=== PATIENT | female | born 1985 | race Caucasian/White ===

== ENCOUNTER 2016-06-02 19:13 | Emergency (ER) | payer MEDICARE ==
[2016-06-02] MEDS ORDERED: Insulin Regular 300 UNITS/3 ML VIAL ONE (19:58)
[2016-06-02 20:00] LABS: Base Excess -7.2 mEq/L (-2 - +2)
[2016-06-02 20:08] LABS: ALT (SGPT) 11 U/L (0-55); AST (SGOT) 11 U/L (5-34); Alkaline Phosphatase 160 U/L (40-150); Anion Gap 25 mmol/L (10-20); BUN (Urea Nitrogen) 22 mg/dL (7.0-18.7); Bilirubin, Total 0.8 mg/dL (0.2-1.2); Calc. Creatinine Clearance 0 mL/min (70-130); Calcium 9.3 mg/dL (7.8-10.44); Carbon Dioxide 16 mmol/L (22-29); Chloride 89 mmol/L (98-107); Estimated GFR-MDRD 42; Globulin 4.2 g/dL (2.4-3.5); Lipase 813 U/L (8-78); Protein, Total 8.1 g/dL (6.0-8.3)
[2016-06-02 20:12] LABS: Bilirubin Negative (Negative); Blood, Urine Trace (Negative); Glucose, Urine (Dipstick) 500 mg/dL (Negative); Ketone, Urine > or equal to 80 mg/dL (Negative); Nitrite Negative (Negative); Protein, Urine (Dipstick) Negative (Neg-Trace); Urobilinogen 0.2 mg/dL (0.2-1.0)
[2016-06-02 20:22] LABS: #Basophils 0.1 thou/uL (0.0-0.2); #Eosinphils 0.9 thou/uL (0.0-0.7); #Lymphocytes 1.1 thou/uL (1.20-3.40); #Monocytes 0.6 thou/uL (0.11-0.59); #Neutrophils 7.9 thou/uL (1.40-6.50); %Basophils 0.9 % (0.0-1.0); %Eosinophils 8.2 % (0.0-10.0); Hematocrit 54.3 % (36.0-47.0); Mean Platelet Volume 8.5 fL (7.4-10.4); Microcytosis SLIGHT = 6-15 cells (100X) (0-5/hpf); Red Blood Cell (RBC) Count 6.49 mill/uL (4.20-5.40); White Blood Cell (WBC) Count 10.5 thou/uL (4.8-10.8)
[2016-06-02 20:25] LABS: Bacteria/HPF Rare-Few HPF (None Seen); Hyaline Casts/LPF NONE SEEN LPF (0-3 Hyaline); Oval Fat Bodies/HPF None Seen HPF (None Seen); RBC/HPF 0-3 HPF (0-3); Renal Epithelial None Seen HPF (0-3); Sperm/HPF None Seen HPF (None Seen); Squamous Epithelial None Seen HPF (0-3); Transitional Epithelial NONE SEEN HPF (0-3); Trichomonas/HPF None Seen HPF (None Seen); Yeast-All Forms None Seen HPF (None Seen)
--- NOTE | 2016-06-02 22:38 | ERRECORD ---
[facility] EMERGENCY RECORD HPI DIABETES (19:38 [facility]) CHIEF COMPLAINT: Patient presents for evaluation of hyperglycemia, Pre-hospital or triage blood sugar greater than 400. HISTORIAN: History provided by patient, 30F with significant medical history presents with complaints of elevated blood sugar that she noted for the first time today. 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 She reports that over the past few days she has felt generalized malaise, polydipsia, polyuria, and weakness. Denies focal complaints. Measured blood sugar of 569 prior to arrival today. Renal transplant was secondary to diabetic nephropathy. LOCATION: Symptoms are generalized. TIME COURSE: Gradual onset of symptoms, Symptoms are worsening. ASSOCIATED WITH: Associated with polydipsia, Associated with polyuria, Associated with weakness. EXACERBATED BY: Patient's condition exacerbated by nothing. RELIEVED BY: Patient's condition relieved by nothing because patient has not tried anything for relief. ROS (19:40 [facility]) CONSTITUTIONAL: Historian denies chills, reports fatigue, denies fever, reports lethargy, reports malaise, denies weakness. EYES: Negative eye review of systems, Historian denies eye pain, denies vision changes. ENT: Negative ears, nose, throat review of systems, Historian denies rhinorrhea, denies sore throat, denies voice changes. CARDIOVASCULAR: Negative cardiovascular review of systems, Historian denies chest pain, denies palpitations. RESPIRATORY: Negative respiratory review of systems, Historian denies cough, denies shortness of breath. GI: Negative gastrointestinal review of systems, Historian denies abdominal pain, denies constipation, denies diarrhea, denies nausea, denies vomiting. GENITOURINARY FEMALE: Negative genitourinary review of systems, Historian denies dysuria, denies frequency. MUSCULOSKELETAL: Negative musculoskeletal review of systems, Historian denies back pain, denies fall, denies injury. SKIN: Negative skin review of systems, Historian denies rash, denies skin changes. NEUROLOGIC: Negative neurologic review of systems, Historian denies headache, denies mental status changes, denies paralysis, denies paresthesias, denies sensory changes. HEMO/LYMPHATIC: Normal hematologic/lymphatic system review, Historian denies abnormal blood clotting. ALLERGIC/IMMUNOLOGIC: Normal allergy/immunologic system review, Historian denies frequent infections. &a-1R&a+25V*p+0X*[id number]*c202B*c15G*c2P*p-0X&a-25V&a+1R Name: Lillie Aviles : 1985 F30 MedRec: [id number] AcctNum: [id number] Prepared: FriJun 03, 2016 07:48 by Interface Page 1 of 4 pMD [facility] EMERGENCY RECORD PAST MEDICAL HISTORY (19:20 [facility]) MEDICAL HISTORY: PMH - Diabetes, type 1, Past medical history includes cardiac history, CVA 2010, Past medical history includes gastrointestinal disease, gastroesophageal reflux disease,.Notes: Immunosuppressed. Past medical history is not significant. PMH - Diabetes, type 1, Past medical history includes cardiac history, CVA 2010, Past medical history includes gastrointestinal disease, gastroesophageal reflux disease,.Notes: Immunosuppressed. Past medical history is not significant. Reviewed 03/06/2016. REVIEWED 06/02/16. FEMALE SURGICAL HISTORY: Surgical history of tonsillectomy, Surgical history of transplant, kidney, pancreas, Date of surgery September 30, 2012,peritoneal dialysis catheter with removal. Surgical history of tonsillectomy, Surgical history of transplant, kidney, pancreas, Date of surgery September 30, 2012,peritoneal dialysis catheter with removal. Reviewed 03/06/2016. REVIEWED 06/02/16. PSYCHIATRIC HISTORY: Psychiatric history includes, depression, Previous psychiatric history: as a child, REPORTS NOW YEARLY. Psychiatric history includes, depression, Previous psychiatric history: as a child, REPORTS NOW YEARLY. Reviewed 03/06/2016. REVIEWED 06/02/16. SOCIAL HISTORY: Patient drinks socially, Patient denies drug use, Patient currently uses tobacco, smokes cigarettes, daily, Patient has smoked for 20 years, Patient smokes 1/2 packs per day. Patient drinks socially, Patient denies drug use, Patient currently uses tobacco, smokes cigarettes, daily, Patient has smoked for 20 years, Patient smokes 1/2 packs per day. Reviewed . REVIEWED 06/02/16. FAMILY HISTORY: Paternal history of cardiac disease:, coronary artery disease, Paternal history of diabetes:, Type II, Paternal history of hypertension:, Paternal history of renal disease:, insufficiency, Maternal history of renal disease, insufficiency. Reviewed 07/09/2015. Paternal history of cardiac disease:, coronary artery disease, Paternal history of diabetes:, Type II, Paternal history of hypertension:, Paternal history of renal disease:, insufficiency, Maternal history of renal disease, insufficiency. Reviewed 07/09/2015. REVIEWED 06/02/16. KNOWN ALLERGIES MORPHINE: Reaction: Hives Sulfa (Sulfonamide Antibiotics): Reaction: Rash, Severity: Moderate, Source: Patient, - blisters in mouth CURRENT MEDICATIONS No recorded medications VITAL SIGNS VITAL SIGNS: BP: 171/108, Pulse: 118, Resp: 20, Temp: 97.5 (Oral), Pain: 0, O2 sat: 100 on Room Air, Time: 06/02/2016 19:16. (19:16 [facility]) &a-1R&a+25V*p+0X*[id number]*c202B*c15G*c2P*p-0X&a-25V&a+1R Name: Lillie Aviles : 1985 F30 MedRec: [id number] AcctNum: [id number] Prepared: FriJun 03, 2016 07:48 by Interface Page 2 of 4 pMD [facility] EMERGENCY RECORD BP: 172/78, Pulse: 93, Resp: 20, O2 sat: 99 on R/A, Time: 06/02/2016 20:02. (20:02 [facility]) BP: 160/89, Pulse: 80, Resp: 20, Pain: 0, O2 sat: 99 on R/A, Time: 06/02/2016 21:59. (21:59 [facility]) PHYSICAL EXAM (19:40 [facility]) CONSTITUTIONAL: Patient afebrile, Pulse, tachycardic, Blood pressure, hypertensive, Respiratory rate normal, Patient appears non toxic, Patient appears pain free, Patient alert and oriented to person, place and time. HEAD: Head exam normal, Head exam included findings of head atraumatic, normocephalic. EYES: Eye exam normal, Eye exam included findings of eyelids normal to inspection, Pupils equally round and reactive to light, Extraocular muscles intact, no nystagmus. ENT: ENT exam normal, Ear exam normal, external ear normal, tympanic membranes normal, no bleeding, Pharynx exam normal, Uvula exam normal, Tonsil exam normal, Mouth exam normal, mucous membranes moist, teeth normal. NECK: Neck exam normal, Neck exam included findings of normal range of motion, Trachea midline, no meningeal signs, no cervical adenopathy, no tenderness. RESPIRATORY CHEST: Respiratory and chest exam normal, Respiratory exam included findings of no respiratory distress, Breath sounds clear. CARDIOVASCULAR: Cardiovascular assessment normal, Cardiovascular exam included findings of heart rate regular rate and rhythm, Heart sounds normal. ABDOMEN FEMALE: Abdominal exam included findings of abdomen nontender, Bowel sounds normal, no distension, no mass, no pulsatile masses, no peritoneal signs, no rigidity, no guarding, no rebound, Rovsing's sign absent. BACK: Back exam normal, Back exam included findings of normal inspection, range of motion normal, no tenderness. UPPER EXTREMITY: Upper extremity exam normal, Upper extremity exam included findings of inspection normal, Range of motion normal, Motor strength normal, Sensation intact, Radial pulse normal. LOWER EXTREMITY: Lower extremity exam normal, Lower extremity exam included findings of inspection normal, Range of motion normal, Motor strength normal, Sensation intact, Posterior tibial pulse normal, Pedal pulse normal. NEURO: Neuro exam normal, Neuro exam findings include patient oriented to person, place and time, Speech normal, Gait normal, Cranial nerves intact, no focal motor deficits, no focal sensory deficits. SKIN: Skin exam normal, Skin exam included findings of skin warm, dry, and normal in color, no rash. PSYCHIATRIC: Psychiatric exam normal, Normal affect. &a-1R&a+25V*p+0X*[id number]*c202B*c15G*c2P*p-0X&a-25V&a+1R Name: Lillie Aviles Chacho : 1985 F30 MedRec: [id number] AcctNum: [id number] Prepared: FriJun 03, 2016 07:48 by Interface Page 3 of 4 pMD [facility] EMERGENCY RECORD MEDICATION ADMINISTRATION SUMMARY Drug Name: potassium chloride in 0.9%NaCl, Dose Ordered: 1 L, Route: IV Fluid Infusion, Status: Given, Time: 21:00 06/02/2016, Drug Name: NovoLIN R, Dose Ordered: 5.5 units/hr, Route: IV Fluid Infusion, Status: Given, Time: 20:24 06/02/2016, Drug Name: HumuLIN R, Dose Ordered: 6 units, Route: IV Push, Status: Given, Time: 20:05 06/02/2016, Drug Name: *sodium chloride 0.9 % intravenous, Dose Ordered: 1 L, Route: IV Fluid Infusion, Status: Given, Time: 19:59 06/02/2016, *Additional information available in notes, Detailed record available in Medication Service section. [facility] TEXT: Patient presented with findings concerning for DKA with pancreatitis. In view of her underlying medical conditions, I am concerned for transplant failure as well. I have initiated DKA management, and will transfer the patient to [facility] in [place] where her renal transplant specialist provides care. She is stable for transplant. PATIENT STATUS: Patient has improved since arrival to emergency department. PATIENT PLAN: The patient requires a transfer and will be transferred, per physician request, due to availability of specialty care, Transfer form completed. DATA REVIEWED: Lab data reviewed. PROBLEM LIST No recorded problems DIAGNOSIS (22:30 [facility]) FINAL: PRIMARY: Diabetic Ketoacidosis - IDDM, Type 1 (DKA). PRESCRIPTION No recorded prescriptions DISPOSITION PATIENT: Disposition Type: Transfer, Disposition: [facility]. (22:01 [facility]) Patient left the department. (22:29 [facility]) Smith: SHERRI=MD Ella, Elan MV[facility]=JACINTO Huerta, Lynne &a-1R&a+25V*p+0X*[id number]*c202B*c15G*c2P*p-0X&a-25V&a+1R Name: AvilesLillie : 1985 F30 MedRec: [id number] AcctNum: [id number] Prepared: FriJun 03, 2016 07:48 by Interface Page 4 of 4 pMD MTDD
--- NOTE | 2016-06-02 22:44 | PICIS ---
[facility] EMERGENCY RECORD TRIAGE ([place] Jun 02, 2016 19:18 MVIL) TRIAGE NOTES: C/O HIGH FS OF 569 AT HOME 6:30PM. ([place] Jun 02, 2016 19:18 MVIL) PATIENT: NAME: Lillie Aviles, AGE: 30, GENDER: female, : [place] 1985, TIME OF GREET: [place] Jun 02, 2016 19:14, PREFERRED LANGUAGE: Latvian, ETHNICITY: Not or , ECODE BILLING MAP: [facility], SSN: [id number], Zip Code: [address], KG WEIGHT: 56.70, HEIGHT/LENGTH: 152.40cm, BMI: 24.41, PHONE: , , , PERSON ID: [id number], PAYMENT: [employer], PCP: DO POLK JOHN SCOTT. ([place] Jun 02, 2016 19:18 MVIL) COMPLAINT: HIGH BLOOD SUGAR. ([place] Jun 02, 2016 19:18 MVIL) ADMISSION: URGENCY: 3 Urgent, ADMISSION SOURCE: Home, TRANSPORT: CAR, BED: ER -02. ([place] Jun 02, 2016 19:18 MVIL) ASSESSMENT: Assessment: C/O HIGH FS AT HOME OF 569., Symptoms began 06/02/2016 19:20, Symptoms began 30 min ago. (19:20 MVIL) PAIN: No complaint of pain. (19:20 MVIL) IMMUNIZATIONS: Flu vaccine up to date, Tetanus immunization up to date, Pneumococcal vaccine up to date. (19:20 MVIL) SIRS SCORING: Heart Rate 110-139 (2), Temp range 96.8-101.1 (0), respiratory rate 12-24 (0), Mental Status altered: no (0), Total SIRS Score 2. (19:20 MVIL) TRIAGE SCREENING: Patient denies suicidal ideation, Patient denies presence of domestic violence. (19:20 MVIL) TREATMENTS IN PROGRESS: Patient on quality assurance monitor, Rhythm: SINUS TACH. (19:20 MVIL) PROVIDERS: TRIAGE NURSE: Lynne Huerta RN. ([place] Jun 02, 2016 19:18 MVIL) VITAL SIGNS: BP 171/108, Pulse 118, Resp 20, Temp 97.5, (Oral), Pain 0, O2 Sat 100, on Room Air, Time 06/02/2016 19:16. (19:16 MVIL) PREVIOUS VISIT ALLERGIES: Sulfa (Sulfonamide Antibiotics). ([place] Jun 02, 2016 19:18 MVIL) Sulfa (Sulfonamide Antibiotics). (19:20 MVIL) KNOWN ALLERGIES MORPHINE: Reaction: Hives Sulfa (Sulfonamide Antibiotics): Reaction: Rash, Severity: Moderate, Source: Patient, - blisters in mouth CURRENT MEDICATIONS No recorded medications VITAL SIGNS VITAL SIGNS: BP: 171/108, Pulse: 118, Resp: 20, Temp: 97.5 (Oral), Pain: 0, O2 sat: 100 on Room Air, Time: 06/02/2016 19:16. (19:16 MVIL) BP: 172/78, Pulse: 93, Resp: 20, O2 sat: 99 on R/A, Time: 06/02/2016 20:02. (20:02 MVIL) BP: 160/89, Pulse: 80, Resp: 20, Pain: 0, O2 sat: 99 on R/A, Time: 06/02/2016 21:59. (21:59 MVIL) &a-1R&a+25V*p+0X*q0846Q*c202B*c15G*c2P*p-0X&a-25V&a+1R Name: Lillie Aviles : 1985 F30 MedRec: [id number] AcctNum: [id number] Prepared: FriJun 03, 2016 07:54 by Interface Page 1 of 12 pMD [facility] EMERGENCY RECORD NURSING ASSESSMENT: CARDIOVASCULAR (19:22 MVIL) CONSTITUTIONAL: Patient arrives ambulatory, Gait steady, History obtained from patient, Patient appears comfortable, Patient cooperative, Patient alert, Oriented to person, place and time, Skin warm, Skin dry, Skin normal in color, Mucous membranes pink, Mucous membranes moist, Patient is well-groomed, Patient complains of HIGH BLOOD SUGAR, FS AT HOME WAS 569 AT 6:30PM. PAIN: No sudden onset of pain. CARDIOVASCULAR: Cardiovascular assessment findings include heart rate, tachycardic, Rate 110, Heart rhythm, sinus tachycardia, Heart sounds normal, Left radial pulse +4(strong and bounding), Right radial pulse +4(strong and bounding), Left dorsalis pedis pulse +4(strong and bounding), Right dorsalis pedis pulse +4(strong and bounding), Associated with palpitations described as, Associated with weakness. RESPIRATORY/CHEST: Breath sounds clear, Respiratory assessment findings include respiratory effort easy, Respirations regular, Conversing normally, Neck and chest exam findings include trachea midline, Chest expansion equal, Chest movement symmetrical. SAFETY: Side rails up, Cart/Stretcher in lowest position, Call light within reach, Hospital ID band on. NURSING PROCEDURE: COMMUNICATIONS (20:18 EMAT) COMMUNICATIONS: Critical lab value, received at 2018, received from Mary, Power Station Operator, Critical lab result: BSG- [id number], given to MD Ella, results read back and verified. NURSING PROCEDURE: IV (20:02 MVIL) PATIENT IDENITIFIER: Patient actively involved in identification process, Patient's identity verified by patient stating name, Patient's identity verified by hospital ID bracelet. IV SITE 1: IV therapy indicated for hydration, IV therapy indicated for medication administration, IV established, to the left forearm, using a 20 gauge catheter, in two attempts, IV site prepped with CHLOROPREP, Saline lock established, Flushed with normal saline (mls): 10MLS, Labs drawn at time of placement, labeled in the presence of the patient and sent to lab. FOLLOW-UP SITE 1: After procedure, 2x3 ensure dressing applied, After procedure, no drainage at IV site, After procedure, no swelling at IV site, After procedure, no redness at IV site. SAFETY: Side rails up, Cart/Stretcher in lowest position, Family at bedside, Call light within reach, Hospital ID band on. VITAL SIGNS: BP: 172, / 78, Pulse: 93, Resp: 20, O2 sat: 99, on: R/A. NURSING PROCEDURE: NURSE NOTES (21:15 MVIL) NURSES NOTES: Notes: FS 519 AT THIS TIME. REMAINS ON INSULIN DRIP AT 5.5ML/HR. DR. WILSON AWARE. &a-1R&a+25V*p+0X*f5885A*c202B*c15G*c2P*p-0X&a-25V&a+1R Name: Lillie Aviles : 1985 F30 MedRec: [id number] AcctNum: [id number] Prepared: FriJun 03, 2016 07:54 by Interface Page 2 of 12 D [facility] EMERGENCY RECORD NURSING PROCEDURE: TRANSFER (21:59 MVIL) TRANSFER: Reason for transfer patient request, Reason for transfer need for specialized care, Diagnosis: DKA, Accepting institution: [facility], Accepting physician: DR. VONDA YOON, Referring physician: DR. WILSON, Transported by urgent ambulance, accompanied by emergency medical services personnel, Report called to receiving facility, [facility], Provided opportunity to answer questions, Bed assigned [id number], Copy of patient record prepared for receiving facility, Status of patient's valuables documented on chart, Medication reconciliation form prepared and sent to receiving facility, Notes: REPORT GIVEN TO JAZZ CASEY AT [facility]. BELONGINGS: Belongings and valuables with patient at time of discharge include:. VITAL SIGNS: BP: 160, / 89, Pulse: 80, Resp: 20, Pain: 0, O2 sat: 99, on: R/A. ORDER DETAILS Order Name: CBC with Differential, Status: Active, Time: 19:25 06/02/2016, User: URBANO, - Ordered for: MD Wilson Jason, - Entered by: MD Wilson Jason - Sun Jun 02, 2016 19:25, - Quantity: 1, Order Name: Comprehensive Metabolic Panel, Status: Active, Time: 19:25 06/02/2016, User: URBANO, - Ordered for: MD Wilson Jason, - Entered by: MD Wilson Jason - Sun Jun 02, 2016 19:25, - Quantity: 1, Order Name: Lipase, Status: Active, Time: 19:25 06/02/2016, User: URBANO, - Ordered for: MD Wilson Jason, - Entered by: MD Wilson Jason - Sun Jun 02, 2016 19:25, - Quantity: 1, Order Name: SALINE LOCK, Status: Done, Time: 19:52 06/02/2016, User: CHENG, - Ordered for: MD Wilson Jason, - Entered by: MD Wilson Jason - Sun Jun 02, 2016 19:25, - Quantity: 1, Order Name: Thyroid Stimulating Hormone, Status: Active, Time: 19:25 06/02/2016, User: URBANO, - Ordered for: MD Wils[place] Jason, - Entered by: MD Wilson Jason - Sun Jun 02, 2016 19:25, - Quantity: 1, Order Name: Urinalysis w/ Rflx Microscopic, Status: Active, Time: 19:49 06/02/2016, User: URBANO, - Ordered for: MD Wilson Jason, - Entered by: MD Wilson Jason - Sun Jun 02, 2016 19:49, - Quantity: 1, &a-1R&a+25V*p+0X*x7780Q*c202B*c15G*c2P*p-0X&a-25V&a+1R Name: Lillie Aviles : 1985 F30 MedRec: [id number] AcctNum: [id number] Prepared: FriJun 03, 2016 07:54 by Interface Page 3 of 12 pMD [facility] EMERGENCY RECORD Order Name: VBG (For BUR,MAD, and PATIENCE), Status: Active, Time: 19:25 06/02/2016, User: URBANO, - Ordered for: MD Wilson Jason, - Entered by: MD Wilson Jason - Sun Jun 02, 2016 19:25, - Quantity: 1. MEDICATION ADMINISTRATION SUMMARY Drug Name: potassium chloride in 0.9%NaCl, Dose Ordered: 1 L, Route: IV Fluid Infusion, Status: Given, Time: 21:00 06/02/2016, Drug Name: NovoLIN R, Dose Ordered: 5.5 units/hr, Route: IV Fluid Infusion, Status: Given, Time: 20:24 06/02/2016, Drug Name: HumuLIN R, Dose Ordered: 6 units, Route: IV Push, Status: Given, Time: 20:05 06/02/2016, Drug Name: *sodium chloride 0.9 % intravenous, Dose Ordered: 1 L, Route: IV Fluid Infusion, Status: Given, Time: 19:59 06/02/2016, *Additional information available in notes, Detailed record available in Medication Service section. MEDICATION SERVICE HumuLIN R: Order: HumuLIN R (insulin regular, human) - Dose: 6 units : IV Push Ordered by: Elan Wilson MD Entered by: Elan Wilson MD [place] Jun 02, 2016 19:27 Documented as given by: Lynne Huerta RN [place] Jun 02, 2016 20:05 Patient, Medication, Dose, Route and Time verified prior to administration. Amount given: 6UNITS, IV SITE #1 IVP, initial medication, Catheter placement confirmed via flush prior to administration, IV site without signs or symptoms of infiltration during medication administration, No swelling during administration, No drainage during administration, IV flushed after administration, Correct patient, time, route, dose and medication confirmed prior to administration, Patient advised of actions and side-effects prior to administration, Allergies confirmed and medications reviewed prior to administration, Patient in position of comfort, Side rails up, Cart in lowest position, Family at bedside, Co-signed by: Braulio Millan RN [place] Jun 02, 2016 20:06. NovoLIN R: Order: NovoLIN R (insulin regular, human) - Dose: 5.5 units/hr : IV Fluid Infusion Ordered by: Elan Wilson MD Entered by: Elan Wilson MD [place] Jun 02, 2016 20:11 Documented as given by: Lynne Huerta RN [place] Jun 02, 2016 20:24 Patient, Medication, Dose, Route and Time verified prior to administration. Amount given: 5.5ML/HR, IV SITE #1 IVPB or drip, initial infusion, Catheter placement confirmed via flush prior to administration, IV site without signs or symptoms of infiltration during medication &a-1R&a+25V*p+0X*y9197A*c202B*c15G*c2P*p-0X&a-25V&a+1R Name: Lillie Aviles : 1985 F30 MedRec: [id number] AcctNum: [id number] Prepared: FriJun 03, 2016 07:54 by Interface Page 4 of 12 pMD [facility] EMERGENCY RECORD administration, No swelling during administration, No drainage during administration, IV flushed after administration, Correct patient, time, route, dose and medication confirmed prior to administration, Patient advised of actions and side-effects prior to administration, Allergies confirmed and medications reviewed prior to administration, Patient in position of comfort, Side rails up, Cart in lowest position, Family at bedside. : Follow Up : Response assessment performed, No signs or symptoms of allergic reaction noted, Decreased symptoms, Site inspection shows, No swelling at administration site, No drainage at administration site, No bleeding at site, No bruising noted at site, Dressing applied, _IV SITE #1:_, Medication infusion continued upon transfer from emergency department, on [place] Jun 02, 2016 22:06, Total infusion time IV site 1 1 hour, 45 minutes, . (22:04 MVIL) potassium chloride in 0.9%NaCl: Order: potassium chloride in 0.9%NaCl (potassium chloride/0.9 % sodium chloride) - Dose: 1 L : IV Fluid Infusion Ordered by: Elan Wilson MD Entered by: Elan Wilson MD [place] Jun 02, 2016 20:44 Documented as given by: Lynne Huerta RN [place] Jun 02, 2016 21:00 Patient, Medication, Dose, Route and Time verified prior to administration. Amount given: 500ML/HR, Catheter placement confirmed via flush prior to administration, IV site without signs or symptoms of infiltration during medication administration, No swelling during administration, No drainage during administration, IV flushed after administration, Correct patient, time, route, dose and medication confirmed prior to administration, Patient advised of actions and side-effects prior to administration, Allergies confirmed and medications reviewed prior to administration, Patient in position of comfort, Side rails up, Cart in lowest position, Family at bedside. : Follow Up : Response assessment performed, No signs or symptoms of allergic reaction noted, Decreased symptoms, Site inspection shows, No swelling at administration site, No drainage at administration site, No bleeding at site, No bruising noted at site, _IV SITE #1:_, Medication infusion continued upon transfer from emergency department, on [place] Jun 02, 2016 22:00, Total infusion time IV site 1 1 hour, ., Advised not to ambulate without assistance, Patient in position of comfort, Side rails up, Cart in lowest position, Family at bedside. (22:00 MVIL) sodium chloride 0.9 % intravenous: Order: sodium chloride 0.9 % intravenous (0.9 % sodium chloride) - Dose: 1 L : IV Fluid Infusion Notes: (Bolus) Ordered by: Elan Wilson MD Entered by: Elan Wilson MD [place] Jun 02, 2016 19:25 Documented as given by: Lynne Huerta RN [place] Jun 02, 2016 19:59 &a-1R&a+25V*p+0X*r6605Y*c202B*c15G*c2P*p-0X&a-25V&a+1R Name: Lillie Aviles : 1985 F30 MedRec: [id number] AcctNum: [id number] Prepared: FriJun 03, 2016 07:54 by Interface Page 5 of 12 pMD [facility] EMERGENCY RECORD Patient, Medication, Dose, Route and Time verified prior to administration. Amount given: 1L, IV SITE #1 IV fluids established for hydration, IV SITE #1 into left forearm, via primary tubing, Catheter placement confirmed via flush prior to administration, IV site without signs or symptoms of infiltration during medication administration, No swelling during administration, No drainage during administration, IV flushed after administration, Correct patient, time, route, dose and medication confirmed prior to administration, Patient advised of actions and side-effects prior to administration, Allergies confirmed and medications reviewed prior to administration, Patient in position of comfort, Side rails up, Cart in lowest position, Family at bedside. : Follow Up : Response assessment performed, No signs or symptoms of allergic reaction noted, Decreased symptoms, Decreased heart rate, Site inspection shows, No swelling at administration site, No drainage at administration site, No bleeding at site, No bruising noted at site, _IV SITE #1:_, IV fluid infusion discontinued, on [place] Jun 02, 2016 22:00, Total fluid hydration time IV site 1 2 hours, 5 minutes, ., Total amount infused: 1000MLS, IV Line flushed after administration, Advised not to ambulate without assistance, Patient in position of comfort, Side rails up, Cart in lowest position, Family at bedside. (22:00 [place]) HPI DIABETES (19:38 [facility]) CHIEF COMPLAINT: Patient presents for evaluation of hyperglycemia, Pre-hospital or triage blood sugar greater than 400. HISTORIAN: History provided by patient, 30F with significant medical history presents with complaints of elevated blood sugar that she noted for the first time today. 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 She reports that over the past few days she has felt generalized malaise, polydipsia, polyuria, and weakness. Denies focal complaints. Measured blood sugar of 569 prior to arrival today. Renal transplant was secondary to diabetic nephropathy. LOCATION: Symptoms are generalized. TIME COURSE: Gradual onset of symptoms, Symptoms are worsening. ASSOCIATED WITH: Associated with polydipsia, Associated with polyuria, Associated with weakness. EXACERBATED BY: Patient's condition exacerbated by nothing. RELIEVED BY: Patient's condition relieved by nothing because patient has not tried anything for relief. ROS (19:40 [facility]) CONSTITUTIONAL: Historian denies chills, reports fatigue, denies fever, reports lethargy, reports malaise, denies weakness. EYES: Negative eye review of systems, Historian denies eye pain, &a-1R&a+25V*p+0X*u1728B*c202B*c15G*c2P*p-0X&a-25V&a+1R Name: Lillie Aviles : 1985 F30 MedRec: [id number] AcctNum: [id number] Prepared: FriJun 03, 2016 07:54 by Interface Page 6 of 12 pMD [facility] EMERGENCY RECORD denies vision changes. ENT: Negative ears, nose, throat review of systems, Historian denies rhinorrhea, denies sore throat, denies voice changes. CARDIOVASCULAR: Negative cardiovascular review of systems, Historian denies chest pain, denies palpitations. RESPIRATORY: Negative respiratory review of systems, Historian denies cough, denies shortness of breath. GI: Negative gastrointestinal review of systems, Historian denies abdominal pain, denies constipation, denies diarrhea, denies nausea, denies vomiting. GENITOURINARY FEMALE: Negative genitourinary review of systems, Historian denies dysuria, denies frequency. MUSCULOSKELETAL: Negative musculoskeletal review of systems, Historian denies back pain, denies fall, denies injury. SKIN: Negative skin review of systems, Historian denies rash, denies skin changes. NEUROLOGIC: Negative neurologic review of systems, Historian denies headache, denies mental status changes, denies paralysis, denies paresthesias, denies sensory changes. HEMO/LYMPHATIC: Normal hematologic/lymphatic system review, Historian denies abnormal blood clotting. ALLERGIC/IMMUNOLOGIC: Normal allergy/immunologic system review, Historian denies frequent infections. PAST MEDICAL HISTORY (19:20 MVIL) MEDICAL HISTORY: PMH - Diabetes, type 1, Past medical history includes cardiac history, CVA 2010, Past medical history includes gastrointestinal disease, gastroesophageal reflux disease,.Notes: Immunosuppressed. Past medical history is not significant. PMH - Diabetes, type 1, Past medical history includes cardiac history, CVA 2010, Past medical history includes gastrointestinal disease, gastroesophageal reflux disease,.Notes: Immunosuppressed. Past medical history is not significant. Reviewed 03/06/2016. REVIEWED 06/02/16. FEMALE SURGICAL HISTORY: Surgical history of tonsillectomy, Surgical history of transplant, kidney, pancreas, Date of surgery September 30, 2012,peritoneal dialysis catheter with removal. Surgical history of tonsillectomy, Surgical history of transplant, kidney, pancreas, Date of surgery September 30, 2012,peritoneal dialysis catheter with removal. Reviewed 03/06/2016. REVIEWED 06/02/16. PSYCHIATRIC HISTORY: Psychiatric history includes, depression, Previous psychiatric history: as a child, REPORTS NOW YEARLY. Psychiatric history includes, depression, Previous psychiatric history: as a child, REPORTS NOW YEARLY. Reviewed 03/06/2016. REVIEWED 06/02/16. SOCIAL HISTORY: Patient drinks socially, Patient denies drug use, Patient currently uses tobacco, smokes cigarettes, daily, Patient has smoked for 20 years, Patient smokes 1/2 packs per day. Patient drinks socially, Patient denies drug use, Patient currently uses tobacco, smokes cigarettes, daily, Patient has smoked for 20 &a-1R&a+25V*p+0X*p1566W*c202B*c15G*c2P*p-0X&a-25V&a+1R Name: Lillie Aviles : 1985 F30 MedRec: [id number] AcctNum: [id number] Prepared: FriJun 03, 2016 07:54 by Interface Page 7 of 12 pMD [facility] EMERGENCY RECORD years, Patient smokes 1/2 packs per day. Reviewed . REVIEWED 06/02/16. FAMILY HISTORY: Paternal history of cardiac disease:, coronary artery disease, Paternal history of diabetes:, Type II, Paternal history of hypertension:, Paternal history of renal disease:, insufficiency, Maternal history of renal disease, insufficiency. Reviewed 07/09/2015. Paternal history of cardiac disease:, coronary artery disease, Paternal history of diabetes:, Type II, Paternal history of hypertension:, Paternal history of renal disease:, insufficiency, Maternal history of renal disease, insufficiency. Reviewed 07/09/2015. REVIEWED 06/02/16. PHYSICAL EXAM (19:40 [facility]) CONSTITUTIONAL: Patient afebrile, Pulse, tachycardic, Blood pressure, hypertensive, Respiratory rate normal, Patient appears non toxic, Patient appears pain free, Patient alert and oriented to person, place and time. HEAD: Head exam normal, Head exam included findings of head atraumatic, normocephalic. EYES: Eye exam normal, Eye exam included findings of eyelids normal to inspection, Pupils equally round and reactive to light, Extraocular muscles intact, no nystagmus. ENT: ENT exam normal, Ear exam normal, external ear normal, tympanic membranes normal, no bleeding, Pharynx exam normal, Uvula exam normal, Tonsil exam normal, Mouth exam normal, mucous membranes moist, teeth normal. NECK: Neck exam normal, Neck exam included findings of normal range of motion, Trachea midline, no meningeal signs, no cervical adenopathy, no tenderness. RESPIRATORY CHEST: Respiratory and chest exam normal, Respiratory exam included findings of no respiratory distress, Breath sounds clear. CARDIOVASCULAR: Cardiovascular assessment normal, Cardiovascular exam included findings of heart rate regular rate and rhythm, Heart sounds normal. ABDOMEN FEMALE: Abdominal exam included findings of abdomen nontender, Bowel sounds normal, no distension, no mass, no pulsatile masses, no peritoneal signs, no rigidity, no guarding, no rebound, Rovsing's sign absent. BACK: Back exam normal, Back exam included findings of normal inspection, range of motion normal, no tenderness. UPPER EXTREMITY: Upper extremity exam normal, Upper extremity exam included findings of inspection normal, Range of motion normal, Motor strength normal, Sensation intact, Radial pulse normal. LOWER EXTREMITY: Lower extremity exam normal, Lower extremity exam included findings of inspection normal, Range of motion normal, Motor strength normal, Sensation intact, Posterior tibial pulse normal, Pedal pulse normal. NEURO: Neuro exam normal, Neuro exam findings include patient &a-1R&a+25V*p+0X*q7242F*c202B*c15G*c2P*p-0X&a-25V&a+1R Name: Lillie Aviles : 1985 [facility] MedRec: [id number] AcctNum: [id number] Prepared: FriJun 03, 2016 07:54 by Interface Page 8 of 12 pMD [facility] EMERGENCY RECORD oriented to person, place and time, Speech normal, Gait normal, Cranial nerves intact, no focal motor deficits, no focal sensory deficits. SKIN: Skin exam normal, Skin exam included findings of skin warm, dry, and normal in color, no rash. PSYCHIATRIC: Psychiatric exam normal, Normal affect. LAB INTERPRETATION (20:29 [facility]) INTERPRETATION: I reviewed the lab results, CBC abnormal, Hemoglobin elevated, Chemistry abnormal, Sodium decreased, Potassium normal, Chloride decreased, Glucose elevated, BUN elevated, Creatinine elevated, Bicarbonate decreased, pseudohyponatremia, Lipase abnormal, elevated, Urinalysis abnormal, positive for ketones, positive for glucose, consistent with DKA. EVENTS TRANSFER: Triage to Emergency Emergency Room -02. (FriJun 02, 2016 19:18 MVIL) Removed from Emergency Emergency Room -02. (22:30 MVIL) DOCTOR NOTES (20:31 [facility]) TEXT: Patient presented with findings concerning for DKA with pancreatitis. In view of her underlying medical conditions, I am concerned for transplant failure as well. I have initiated DKA management, and will transfer the patient to [facility] in [place] where her renal transplant specialist provides care. She is stable for transplant. PATIENT STATUS: Patient has improved since arrival to emergency department. PATIENT PLAN: The patient requires a transfer and will be transferred, per physician request, due to availability of specialty care, Transfer form completed. DATA REVIEWED: Lab data reviewed. PROBLEM LIST No recorded problems DIAGNOSIS (22:30 MVIL) FINAL: PRIMARY: Diabetic Ketoacidosis - IDDM, Type 1 (DKA). DISPOSITION PATIENT: Disposition Type: Transfer, Disposition: Jorge. (22:01 [facility]) Patient left the department. (22:29 MVIL) PRESCRIPTION &a-1R&a+25V*p+0X*v1831W*c202B*c15G*c2P*p-0X&a-25V&a+1R Name: Lillie Aviles : 1985 1 MedRec: [id number] AcctNum: [id number] Prepared: FriJun 03, 2016 07:54 by Interface Page 9 of 12 pMD [facility] EMERGENCY RECORD No recorded prescriptions IMAGING CONSENTS: Image captured from scanner. (20:38 MVIL) *SUPPLY CHARGE SHEET: Image captured from scanner. (20:39 MVIL) *MEMORANDUM OF TRANSFER: Image captured from scanner. (21:10 MVIL) PHYSICIAN CERTIFICATION STATEMENT: Image captured from scanner. (21:10 MVIL) ADMIN (FriJun 03, 2016 07:47 [facility]) DIGITAL SIGNATURE: MD Wilson Jason. RESULTS (21:12 MVIL) LABORATORY: Thyroid Stimulating Hormone Collection DT: FriJun 02, 2016 19:48, Thyroid Stimulating Hormone 2.8902 uIU/mL, Range (0.35-4.94). Urine Microscopic Collection DT: FriJun 02, 2016 20:09, RBC/HPF 0-3 HPF, Range (0-3), *WBC/HPF 4-6 - H HPF, Range (0-3), Squamous Epithelial None Seen HPF, Range (0-3), Transitional Epithelial NONE SEEN HPF, Range (0-3), Renal Epithelial None Seen HPF, Range (0-3), Bacteria/HPF Rare-Few HPF, Range (None Seen), Yeast-All Forms None Seen HPF, Range (None Seen), Trichomonas/HPF None Seen HPF, Range (None Seen), Oval Fat Bodies/HPF None Seen HPF, Range (None Seen), Sperm/HPF None Seen HPF, Range (None Seen), Hyaline Casts/LPF NONE SEEN LPF, Range (0-3 Hyaline). Urinalysis w/ Rflx Microscopic Collection DT: [place] Jun 02, 2016 20:09, Color Yellow , Range (Yellow), Clarity Clear , Range (Clear), Specific [place], Urine 1.027 , Range (1.002-1.036), pH, Urine 5.5 , Range (5.0-9.0), *Leukocyte Trace - H , Range (Negative), Nitrite Negative , Range (Negative), Protein, Urine (Dipstick) Negative mg/dL, Range (Neg-Trace), *Glucose, Urine (Dipstick) 500 - H mg/dL, Range (Negative), *Ketone, Urine > or equal to 80 - mg/dL, * H , Range (Negative), Urobilinogen 0.2 mg/dL, Range (0.2-1.0), Bilirubin Negative , Range (Negative), *Blood, Urine Trace - H , Range (Negative). CBC with Differential Collection DT: [place] Jun 02, 2016 19:48, White Blood Cell (WBC) Count 10.5 thou/uL, Range (4.8-10.8), *Red Blood Cell (RBC) Count 6.49 - H mill/uL, Range (4.20-5.40), *Hemoglobin 16.2 - H g/dL, Range (12.0-16.0), *Hematocrit 54.3 - H %, Range (36.0-47.0), &a-1R&a+25V*p+0X*y1197T*c202B*c15G*c2P*p-0X&a-25V&a+1R Name: Lillie Aviles Chacho : 1985 1 MedRec: [id number] AcctNum: [id number] Prepared: FriJun 03, 2016 07:54 by Interface Page 10 of 12 pMD [facility] EMERGENCY RECORD Mean Corpuscular Volume 83.6 fl, Range (81.0-99.0), *Mean Corpuscular Hemoglobin 24.9 - L pg, Range (27.0-31.0), *Mean Corpuscular HGB CONC 29.8 - L g/dL, Range (32.0-36.0), *RBC Distribution Width 17.6 - H %, Range (11.5-14.5), Platelet Count 205 thou/uL, Range (130-400), Mean Platelet Volume 8.5 fL, Range (7.4-10.4), %Neutrophils 74.8 %, Range (42.0-75.0), *%Lymphocytes 10.1 - L %, Range (21.0-51.0), %Monocytes 6.0 %, Range (0.0-10.0), %Eosinophils 8.2 %, Range (0.0-10.0), %Basophils 0.9 %, Range (0.0-1.0), *#Neutrophils 7.9 - H thou/uL, Range (1.40-6.50), *#Lymphocytes 1.1 - L thou/uL, Range (1.20-3.40), *#Monocytes 0.6 - H thou/uL, Range (0.11-0.59), *#Eosinphils 0.9 - H thou/uL, Range (0.0-0.7), #Basophils 0.1 thou/uL, Range (0.0-0.2), Microcytosis SLIGHT = 6-15 cells (100X), Range (0-5/hpf). Lipase Collection DT: [place] Jun 02, 2016 19:48, *Lipase 813 - H U/L, Range (8-78). Comprehensive Metabolic Panel Collection DT: [place] Jun 02, 2016 19:48, Critical Call Chemistry CALLED TO CCU.EM 2017 BY RACHELL , Refer to Critical Value designated by an *L or *H , *Sodium 125 - L mmol/L, Range (136-145), Potassium 4.8 mmol/L, Range (3.5-5.1), *Chloride 89 - L mmol/L, Range (98-107), *Carbon Dioxide 16 - L mmol/L, Range (22-29), *Anion Gap 25 - H mmol/L, Range (10-20), *BUN (Urea Nitrogen) 22 - H mg/dL, Range (7.0-18.7), *Creatinine 1.46 - H mg/dL, Range (0.6-1.1), Estimated GFR-MDRD 42 , Reference Range for Estimated GFR: Greater than 90, mL/min/1.73 m2 NOTE: The MDRD equation has not been validated for use, with the elderly (over 70 years of age), women, patients with, serious comorbid condition or persons with extremes of body size, muscle, mass, or nutritional status. , *Glucose 784 - *H mg/dL, Range (70-105), Critical value!, Calcium 9.3 mg/dL, Range (7.8-10.44), Bilirubin, Total 0.8 mg/dL, Range (0.2-1.2), Protein, Total 8.1 g/dL, Range (6.0-8.3), NOTE: Plasma values are generally 0.3 to 0.5 g/dL higher than serum values, due to the presence of fibrinogen. , Albumin 3.9 g/dL, Range (3.5-5.0), *Globulin 4.2 - H g/dL, Range (2.4-3.5), *Alb/Glob Ratio 0.9 - L g/dL, Range (1.2-2.2), *Alkaline Phosphatase 160 - H U/L, Range (40-150), &a-1R&a+25V*p+0X*q9192K*c202B*c15G*c2P*p-0X&a-25V&a+1R Name: Lillie Aviles : 1985 F30 MedRec: [id number] AcctNum: [id number] Prepared: FriJun 03, 2016 07:54 by Interface Page 11 of 12 pMD [facility] EMERGENCY RECORD AST (SGOT) 11 U/L, Range (5-34), ALT (SGPT) 11 U/L, Range (0-55). Blood Gas-Venous Collection DT: [place] Jun 02, 2016 19:48, *pH (venous) 7.250 - *L , Range (7.34-7.37), Results called to, and verbally verified through read-back by: NIRMALA FELIX @ENTER PERSON CALLED IN THE BRACKETS. by: Reji Liu on 06/02/16 at, 1959. CORRECTED REPORT Result, reported above is a corrected result. Previous result reported as 7.250 *L , was incorrect due to: CORRECTED READ BACK. EDITED Results called to: , Performed by: Reji Liu on 06/02/16 at 2005. , CO2 Tension (PvCO2) 46.0 mmHg, Range (44-46), O2 Tension (PvO2) 41.0 mmHg, Range (38-42), *Actual Bicarbonate (HCO3v) 20 - L mEq/L, Range (24-30), Base Excess -7.2 mEq/L, Range (-2 - +2), O2 Saturation-measured venous 67.0 %, Range (60-80), *Hemoglobin (Hb) 16.2 - H g/dL, Range (11.7-15.5). Smith: ANGELT=JACINTO Millan, Braulio CLEMENT=MD Ella, Elan CWOANIL=JACINTO Huerta, Lynne &a-1R&a+25V*p+0X*e8344T*c202B*c15G*c2P*p-0X&a-25V&a+1R Name: StefanLillie : 1985 F30 MedRec: [id number] AcctNum: [id number] Prepared: FriJun 03, 2016 07:54 by Interface Page 12 of 12 pMD MTDD
== END 2016-06-02 22:29 | disposition short-term general hospital (02) ==
LOC: BURERS 19:13
DX: E10.10 Type 1 diabetes mellitus with ketoacidosis without coma (principal); K21.9 Gastro-esophageal reflux disease without esophagitis; F32.9 Major depressive disorder, single episode, unspecified; F17.210 Nicotine dependence, cigarettes, uncomplicated
CPT/HCPCS: 36416; 80053; 81003; 81015; 82805; 83690; 84443; 85025; 96365; 96366; 96368; 96376; J1815

== ENCOUNTER 2016-06-15 09:34 | Emergency (ER) | payer MEDICARE ==
[2016-06-15] MEDS ORDERED: Fluorescein Opthalmic Strip ONE (09:46)
[2016-06-15] MEDS ORDERED: Tetracaine HCl 0.5% Ophth Soln 15 ML Bottle ONE (09:46)
[2016-06-15] MEDS ORDERED: HYDROcodone/Acetaminophen 5/325 mg Tablet ONE ×2 (10:13→10:32)
== END 2016-06-15 12:05 | disposition home or self-care (01) ==
LOC: BURERS 09:34
DX: B02.33 Zoster keratitis (principal); E10.9 Type 1 diabetes mellitus without complications; K21.9 Gastro-esophageal reflux disease without esophagitis; F41.9 Anxiety disorder, unspecified; F32.9 Major depressive disorder, single episode, unspecified; F17.210 Nicotine dependence, cigarettes, uncomplicated; Z94.0 Kidney transplant status; Z86.73 Personal history of transient ischemic attack (TIA), and cerebral infarction without residual deficits
CPT/HCPCS: 99283

== ENCOUNTER 2016-06-24 20:19 | Emergency (ER) | payer MEDICARE ==
[2016-06-24] MEDS ORDERED: Tetracaine HCl 0.5% Ophth Soln 2 ML Bottle ONE (20:30)
[2016-06-24] MEDS ORDERED: Ondansetron HCl/PF 4 MG/2 ML Vial ONE (20:47)
[2016-06-24] MEDS ORDERED: Morphine Sulfate 2 MG/ML SYRINGE ONE (20:47)
[2016-06-24 21:06] LABS: Mean Platelet Volume 7.7 fL (7.4-10.4); Red Blood Cell (RBC) Count 5.83 mill/uL (4.20-5.40); White Blood Cell (WBC) Count 9.9 thou/uL (4.8-10.8)
[2016-06-24 21:08] LABS: ALT (SGPT) 15 U/L (0-55); AST (SGOT) 12 U/L (5-34); Alkaline Phosphatase 132 U/L (40-150); Anion Gap 17 mmol/L (10-20); BUN (Urea Nitrogen) 8 mg/dL (7.0-18.7); Bilirubin, Total 0.6 mg/dL (0.2-1.2); Calc. Creatinine Clearance 0 mL/min (70-130); Calcium 9.7 mg/dL (7.8-10.44); Carbon Dioxide 23 mmol/L (22-29); Chloride 96 mmol/L (98-107); Estimated GFR-MDRD 85; Globulin 4.2 g/dL (2.4-3.5)
[2016-06-24 21:14] LABS: #Basophils 0.1 thou/uL (0.0-0.2); #Eosinphils 0.9 thou/uL (0.0-0.7); #Lymphocytes 1.4 thou/uL (1.20-3.40); #Monocytes 0.7 thou/uL (0.11-0.59); #Neutrophils 6.9 thou/uL (1.40-6.50); %Basophils 1.2 % (0.0-1.0); %Eosinophils 8.6 % (0.0-10.0); %Monocytes 6.6 % (0.0-10.0); Anisocytosis SLIGHT = 6-15 cells (100X) (0-5/hpf)
== END 2016-06-24 21:40 | disposition short-term general hospital, planned readmission (82) ==
LOC: BURERS 20:19
DX: H40.212 Acute angle-closure glaucoma, left eye (principal); H16.9 Unspecified keratitis; K21.9 Gastro-esophageal reflux disease without esophagitis; E10.9 Type 1 diabetes mellitus without complications; F32.9 Major depressive disorder, single episode, unspecified; F41.9 Anxiety disorder, unspecified; F17.210 Nicotine dependence, cigarettes, uncomplicated; Z86.73 Personal history of transient ischemic attack (TIA), and cerebral infarction without residual deficits
CPT/HCPCS: 36416; 80053; 84703; 85025; 96361; 96374; 96375; J2270; J2405

== ENCOUNTER 2016-12-12 16:05 | Emergency (ER) | payer MEDICARE ==
[2016-12-12] MEDS ORDERED: Ondansetron HCl/PF 4 MG/2 ML Vial ONE ×2 (16:55→17:02)
[2016-12-12 16:59] LABS: #Basophils 0.2 thou/uL (0.0-0.2); #Eosinphils 0.3 thou/uL (0.0-0.7); #Lymphocytes 1.5 thou/uL (1.20-3.40); #Monocytes 0.6 thou/uL (0.11-0.59); #Neutrophils 5.1 thou/uL (1.40-6.50); %Basophils 2.3 % (0.0-1.0); %Eosinophils 4.2 % (0.0-10.0); %Lymphocytes 19.5 % (21.0-51.0); %Monocytes 7.3 % (0.0-10.0); %Neutrophils 66.9 % (42.0-75.0); Hemoglobin 14.7 g/dL (12.0-16.0); Mean Corpuscular HGB CONC 34.5 g/dL (32.0-36.0); Mean Corpuscular Volume 92.7 fl (81.0-99.0); Platelet Count 238 thou/uL (130-400); RBC Distribution Width 12.5 % (11.5-14.5); Red Blood Cell (RBC) Count 4.59 mill/uL (4.20-5.40); White Blood Cell (WBC) Count 7.6 thou/uL (4.8-10.8)
[2016-12-12] MEDS ORDERED: Famotidine In NaCl 20 mg/50 ml Premix Bag ONE (17:02)
[2016-12-12 17:17] LABS: CKMB 0.7 ng/mL (0-6.6); Troponin I Less than 0.010 ng/mL (< 0.028)
[2016-12-12 17:18] LABS: ALT (SGPT) 15 U/L (8-55); AST (SGOT) 29 U/L (5-34); Alkaline Phosphatase 129 U/L (40-150); Anion Gap 19 mmol/L (10-20); BUN (Urea Nitrogen) 23 mg/dL (7.0-18.7); Bilirubin, Total 0.8 mg/dL (0.2-1.2); Calc. Creatinine Clearance 0 mL/min (70-130); Calcium 9.8 mg/dL (7.8-10.44); Carbon Dioxide 21 mmol/L (22-29); Chloride 102 mmol/L (98-107); Estimated GFR-MDRD 68; Globulin 4.3 g/dL (2.4-3.5); Glucose 143 mg/dL (70-105); Lipase 6 U/L (8-78); Potassium 4.5 mmol/L (3.5-5.1); Protein, Total 8.3 g/dL (6.0-8.3); Sodium 137 mmol/L (136-145)
[2016-12-12] MEDS ORDERED: Fentanyl 100 MCG/2 ML VIAL ONE (18:14)
--- NOTE | 2016-12-12 18:59 | RAD ---
FRONTAL VIEW CHEST 12/12/16 No prior comparison. CLINICAL HISTORY: Chest pain. The lungs are clear. No effusion or pneumothorax. Cardiac silhouette is within normal limits in size . There is leads overlying the chest limiting detail. IMPRESSION: No focal consolidation. POS: [facility]
[2016-12-12 20:02] LABS: Blood, Urine Negative (Negative); Clarity Clear (Clear); Glucose, Urine (Dipstick) 500 mg/dL (Negative); Leukocyte Negative (Negative); Nitrite Negative (Negative); Protein, Urine (Dipstick) Negative (Neg-Trace); Urobilinogen 0.2 mg/dL (0.2-1.0); pH, Urine 5.5 (5.0-9.0)
[2016-12-12 20:03] LABS: Bilirubin Negative (Negative); Specific Gravity, Urine 1.022 (1.002-1.036)
--- NOTE | 2016-12-12 21:30 | CT ---
ABDOMEN AND PELVIS CT WITHOUT CONTRAST 12/12/16 CLINICAL HISTORY: Pain. Reference made to 12/24/11 exam. FINDINGS: There are atrophic ak chin kidneys, with transplant kidney of the low abdomen/pelvis to the left of m idline. Mild prominence of the transplant collecting system. The transplant is incompletely assessed without contrast administration. Enteric contrast was administered which reveals normal caliber sma ll bowel. There is moderate retained fecal material throughout the colon. Moderate distention of the urinary bladder. Scattered vascular calcification present. Solid abdominal organs, lymph nodes and vasculature incompletely assessed without the presence of IV contrast. There is a fat containing her maria dolores near the level of the umbilicus, to the left of midline. No significant abnormality at the image d lung bases. The imaged osseous structures are intact. IMPRESSION: 1. Mild prominence of collecting system of renal transplant at the left lower quadrant. 2. Constipation. 3. Limited evaluation without the presence of IV contrast. 4. Advanced for age vascular disease. Correlate clinically. POS: [facility]
== END 2016-12-12 20:20 | disposition home or self-care (01) ==
LOC: BURERS 16:05
DX: K59.00 Constipation, unspecified (principal); R10.13 Epigastric pain; R10.11 Right upper quadrant pain; R10.12 Left upper quadrant pain; I25.10 Atherosclerotic heart disease of native coronary artery without angina pectoris; E10.9 Type 1 diabetes mellitus without complications; K21.9 Gastro-esophageal reflux disease without esophagitis; N18.6 End stage renal disease; F32.9 Major depressive disorder, single episode, unspecified; F41.9 Anxiety disorder, unspecified; F17.210 Nicotine dependence, cigarettes, uncomplicated; Z86.73 Personal history of transient ischemic attack (TIA), and cerebral infarction without residual deficits; Z79.4 Long term (current) use of insulin; Z79.899 Other long term (current) drug therapy
CPT/HCPCS: 36416; 71010; 74177; 80053; 81003; 82553; 83690; 84484; 85025; 96361; 96365; 96375; J2405; J3010

== ENCOUNTER 2016-12-24 22:31 | Emergency (ER) | payer MEDICARE ==
[2016-12-24 22:57] LABS: Bilirubin Negative (Negative); Blood, Urine Trace (Negative); Clarity Cloudy (Clear); Glucose, Urine (Dipstick) 100 mg/dL (Negative); Leukocyte Large (Negative); Nitrite Negative (Negative); Protein, Urine (Dipstick) 30 mg/dL (Neg-Trace); Specific Gravity, Urine 1.025 (1.005-1.030); Urobilinogen 0.2 mg/dL (0.2-1.0); pH, Urine 5.5 (5.0-9.0)
[2016-12-24 23:11] LABS: #Eosinphils 0.1 thou/uL (0.0-0.7); #Lymphocytes 0.6 thou/uL (1.20-3.40); #Monocytes 0.3 thou/uL (0.11-0.59); #Neutrophils 6.6 thou/uL (1.40-6.50); %Basophils 0.5 % (0.0-1.0); %Eosinophils 1.5 % (0.0-10.0); %Lymphocytes 7.7 % (21.0-51.0); %Monocytes 4.4 % (0.0-10.0); Hemoglobin 14.5 g/dL (12.0-16.0); Mean Corpuscular HGB CONC 33.7 g/dL (32.0-36.0); Mean Corpuscular Hemoglobin 32.5 pg (27.0-31.0); Mean Corpuscular Volume 96.7 fl (81.0-99.0); Mean Platelet Volume 6.6 fL (7.4-10.4); Platelet Count 218 thou/uL (130-400); RBC Distribution Width 12.8 % (11.5-14.5); Red Blood Cell (RBC) Count 4.46 mill/uL (4.20-5.40); White Blood Cell (WBC) Count 7.7 thou/uL (4.8-10.8)
[2016-12-24 23:11] LABS: Bacteria/HPF 2+ HPF (None Seen); Other Microscopic Description FEW CLUE CELLS; RBC/HPF 0-3 HPF (0-3); Squamous Epithelial 0-3 HPF (0-3)
[2016-12-24 23:18] LABS: Prothrombin Time 13.5 SEC (12.0-14.7)
[2016-12-24 23:26] LABS: ALT (SGPT) 21 U/L (8-55); AST (SGOT) 22 U/L (5-34); Albumin 3.5 g/dL (3.5-5.0); Alkaline Phosphatase 106 U/L (40-150); Anion Gap 15 mmol/L (10-20); BUN (Urea Nitrogen) 18 mg/dL (7.0-18.7); Bilirubin, Total 1.1 mg/dL (0.2-1.2); Calc. Creatinine Clearance 0 mL/min (70-130); Calcium 8.7 mg/dL (7.8-10.44); Carbon Dioxide 21 mmol/L (22-29); Chloride 102 mmol/L (98-107); Estimated GFR-MDRD 87; Globulin 3.2 g/dL (2.4-3.5); Glucose 226 mg/dL (70-105); Lipase 5 U/L (8-78); Potassium 3.9 mmol/L (3.5-5.1); Protein, Total 6.7 g/dL (6.0-8.3); Sodium 134 mmol/L (136-145)
[2016-12-24 23:27] LABS: PTT 26.9 SEC (22.9-36.1)
[2016-12-24] MEDS ORDERED: Piperacillin/Tazobactam 3.375 GM VIAL ONE (23:29)
[2016-12-24] MEDS ORDERED: Acetaminophen 325 MG Suppository ONE (23:50)
--- NOTE | 2016-12-25 07:05 | RAD ---
PORTABLE CHEST: Date: 12/24/16 An AP portable film at 2254 hours shows a normal sized heart and clear lungs. No sign of pneumonia o r other cause for fever in the chest. The mediastinum appears normal and the trachea is midline. IMPRESSION: No acute findings. POS: HOME
== END 2016-12-24 23:58 | disposition critical access hospital (66) ==
LOC: BURERS 22:31
DX: N12 Tubulo-interstitial nephritis, not specified as acute or chronic (principal); E10.22 Type 1 diabetes mellitus with diabetic chronic kidney disease; N18.6 End stage renal disease; D89.9 Disorder involving the immune mechanism, unspecified; K21.9 Gastro-esophageal reflux disease without esophagitis; F17.210 Nicotine dependence, cigarettes, uncomplicated; Z79.4 Long term (current) use of insulin; Z86.73 Personal history of transient ischemic attack (TIA), and cerebral infarction without residual deficits
CPT/HCPCS: 36416; 71010; 80053; 81003; 81015; 83605; 83690; 85025; 85610; 85730; 87040; 87077; 87086; 87186; 94760; 96365; 36415-59; J2543

== ENCOUNTER 2017-07-05 21:38 | Emergency (ER) | payer MEDICARE ==
[2017-07-05 22:26] LABS: Hemoglobin 15.1 g/dL (12.0-16.0); Mean Corpuscular HGB CONC 32.2 g/dL (32.0-36.0); Mean Corpuscular Hemoglobin 32.4 pg (27.0-31.0); Mean Platelet Volume 6.4 fL (7.4-10.4); Platelet Count 338 thou/uL (130-400); RBC Distribution Width 16.5 % (11.5-14.5); Red Blood Cell (RBC) Count 4.67 mill/uL (4.20-5.40); White Blood Cell (WBC) Count 24.9 thou/uL (4.8-10.8)
[2017-07-05] MEDS ORDERED: Ondansetron HCl/PF 4 MG/2 ML Vial ONE (22:30)
[2017-07-05 22:38] LABS: ALT (SGPT) 13 U/L (8-55); AST (SGOT) 11 U/L (5-34); Albumin 3.4 g/dL (3.5-5.0); Alcohol Less than 10 mg/dL (Less than 10); Alkaline Phosphatase 208 U/L (40-150); BUN (Urea Nitrogen) 15 mg/dL (7.0-18.7); Bilirubin, Total 0.5 mg/dL (0.2-1.2); Calc. Creatinine Clearance 0 mL/min (70-130); Calcium 9.3 mg/dL (7.8-10.44); Carbon Dioxide Less than 8 mmol/L (22-29); Chloride 101 mmol/L (98-107); Estimated GFR-MDRD 44; Globulin 3.3 g/dL (2.4-3.5); Potassium 4.9 mmol/L (3.5-5.1); Protein, Total 6.7 g/dL (6.0-8.3); Sodium 138 mmol/L (136-145)
[2017-07-05 22:40] LABS: CKMB 1.1 ng/mL (0-6.6); Glucose 718 mg/dL (70-105); Troponin I Less than 0.010 ng/mL (< 0.028)
[2017-07-05 22:46] LABS: Anisocytosis SLIGHT = 6-15 cells (100X) (0-5/hpf); Band 7 % (5-11); Lymphocytes 3 % (21-51); MDiff Complete? YES; Monocytes 1 % (0-10); Neutrophil 89 % (42-75); PLT Morphology Comment Appears Adequate; RBC Morphology Normal
[2017-07-05] MEDS ORDERED: Potassium Chloride 20 MEQ/100 ML PREMIX BAG ONE (22:46)
[2017-07-05] MEDS ORDERED: Insulin Regular 300 UNITS/3 ML VIAL ONE (22:51)
[2017-07-05 23:23] LABS: Bilirubin Negative (Negative); Blood, Urine Trace (Negative); Clarity Hazy (Clear); Glucose, Urine (Dipstick) 500 mg/dL (Negative); Leukocyte Negative (Negative); Nitrite Negative (Negative); Protein, Urine (Dipstick) 30 mg/dL (Neg-Trace); Urobilinogen 0.2 mg/dL (0.2-1.0)
[2017-07-05 23:30] LABS: Crystals/HPF 1+ AMORPH URATES HPF (Negative); RBC/HPF 0-3 HPF (0-3); Squamous Epithelial 0-3 HPF (0-3); WBC/HPF 0-3 HPF (0-3)
[2017-07-05 23:32] LABS: Amphetamine Not Detected (NotDetected); Barbiturates Screen Not Detected (NotDetected); Benzodiazepine Screen Not Detected (NotDetected); Cocaine Metabolite Screen Not Detected (NotDetected); Methadone Not Detected (NotDetected); Methamphetamine Detected (NotDetected); Opiate Screen Not Detected (NotDetected); Oxycodone Screen Not Detected (NotDetected); Phencyclidine (PCP) Not Detected (NotDetected); THC/Cannabinoid Screen Not Detected (NotDetected); Tricyclic Screen Not Detected (NotDetected)
[2017-07-05 23:33] LABS: Medtox Control Line Valid? VALID (VALID)
== END 2017-07-06 00:07 | disposition short-term general hospital (02) ==
LOC: BURERS 21:38
DX: E11.22 Type 2 diabetes mellitus with diabetic chronic kidney disease (principal); E10.10 Type 1 diabetes mellitus with ketoacidosis without coma; N18.6 End stage renal disease; K21.9 Gastro-esophageal reflux disease without esophagitis; F41.9 Anxiety disorder, unspecified; F32.9 Major depressive disorder, single episode, unspecified; Z86.73 Personal history of transient ischemic attack (TIA), and cerebral infarction without residual deficits; F17.210 Nicotine dependence, cigarettes, uncomplicated
CPT/HCPCS: 36416; 51702; 80053; 80306; 80307; 81003; 81015; 82553; 83605; 84484; 85025; 87040; 96361; 96365; 96375; J1815; J2405; J3480

== ENCOUNTER 2017-07-26 23:47 | Observation (INO) | payer MEDICARE ==
[2017-07-27 01:31] LABS: #Eosinphils 0.1 thou/uL (0.0-0.7); #Lymphocytes 1.6 thou/uL (1.20-3.40); #Monocytes 0.3 thou/uL (0.11-0.59); #Neutrophils 1.7 thou/uL (1.40-6.50); %Basophils 1.1 % (0.0-1.0); %Eosinophils 3.3 % (0.0-10.0); %Lymphocytes 42.5 % (21.0-51.0); %Monocytes 8.1 % (0.0-10.0); %Neutrophils 45.1 % (42.0-75.0); Hemoglobin 13.2 g/dL (12.0-16.0); Mean Corpuscular HGB CONC 35.8 g/dL (32.0-36.0); Mean Corpuscular Hemoglobin 33.3 pg (27.0-31.0); Mean Corpuscular Volume 92.9 fl (81.0-99.0); Mean Platelet Volume 6.6 fL (7.4-10.4); Platelet Count 290 thou/uL (130-400); RBC Distribution Width 14.7 % (11.5-14.5); Red Blood Cell (RBC) Count 3.95 mill/uL (4.20-5.40); White Blood Cell (WBC) Count 3.8 thou/uL (4.8-10.8)
[2017-07-27] MEDS ORDERED: Lidocaine 1% w/Epinephrine 1:100K 30 ML VIAL ONE (01:38)
[2017-07-27 01:42] LABS: ALT (SGPT) 13 U/L (8-55); AST (SGOT) 11 U/L (5-34); Albumin 3.5 g/dL (3.5-5.0); Alkaline Phosphatase 154 U/L (40-150); Anion Gap 19 mmol/L (10-20); BUN (Urea Nitrogen) 9 mg/dL (7.0-18.7); Bilirubin, Total 0.6 mg/dL (0.2-1.2); Calc. Creatinine Clearance 0 mL/min (70-130); Carbon Dioxide 26 mmol/L (22-29); Chloride 95 mmol/L (98-107); Estimated GFR-MDRD Greater than 90; Globulin 3.2 g/dL (2.4-3.5); Glucose 218 mg/dL (70-105); Potassium 3.7 mmol/L (3.5-5.1); Protein, Total 6.7 g/dL (6.0-8.3); Sodium 136 mmol/L (136-145)
[2017-07-27 01:43] LABS: INR-International Normal Ratio 0.9; PTT 26.6 SEC (22.9-36.1); Prothrombin Time 11.9 SEC (12.0-14.7)
[2017-07-27] MEDS ORDERED: Clindamycin 150 MG CAP ONE ×2 (04:49)
[2017-07-27 04:57] LABS: Bilirubin Negative (Negative); Blood, Urine Moderate (Negative); Clarity Cloudy (Clear); Glucose, Urine (Dipstick) 500 mg/dL (Negative); Leukocyte Small (Negative); Nitrite Negative (Negative); Protein, Urine (Dipstick) Trace mg/dL (Neg-Trace); Urobilinogen 0.2 mg/dL (0.2-1.0); pH, Urine 6.5 (5.0-9.0)
[2017-07-27 04:58] LABS: Bacteria/HPF 4+ HPF (None Seen); Squamous Epithelial 0-3 HPF (0-3); WBC/HPF 21-50 HPF (0-3)
[2017-07-27 05:11] LABS: Amphetamine Detected (NotDetected); Barbiturates Screen Not Detected (NotDetected); Benzodiazepine Screen Not Detected (NotDetected); Cocaine Metabolite Screen Not Detected (NotDetected); Medtox Control Line Valid? VALID (VALID); Methadone Not Detected (NotDetected); Methamphetamine Detected (NotDetected); Opiate Screen Not Detected (NotDetected); Oxycodone Screen Not Detected (NotDetected); Phencyclidine (PCP) Not Detected (NotDetected); THC/Cannabinoid Screen Not Detected (NotDetected); Tricyclic Screen Not Detected (NotDetected)
[2017-07-27 05:51] VITALS: BMI 18.8
[2017-07-27] MEDS ORDERED: Dextrose 5% in Water 1,000 ML IV PRN (06:19)
[2017-07-27] MEDS ORDERED: Dextrose 50% Abboject 50 ML SYRINGE IVP PRN (06:19)
[2017-07-27 06:27] LABS: Lactic Acid 1.1 mmol/L (0.5-2.2)
[2017-07-27] MEDS ORDERED: Nitrofurantoin Monohyd/M-Cryst 100 MG CAP PO SCH ×2 (06:30→21:00)
[2017-07-27] MEDS ORDERED: Furosemide 20 MG TAB PO SCH (09:00)
[2017-07-27] MEDS: Clindamycin 150 MG CAP PO SCH ×3 (09:03→17:22)
[2017-07-27] MEDS: HumaLOG 300 UNITS/3 ML VIAL SC PRN ×3 (09:04→17:23)
[2017-07-27] MEDS: HumaLOG 300 UNITS/3 ML VIAL SC SCH ×3 (09:04→17:22)
--- NOTE | 2017-07-27 09:46 | RAD ---
CHEST 1 VIEW: Date: 07/27/17 HISTORY: Shortness of breath. Allergic reaction and dyspnea. COMPARISON: 07/06/17. FINDINGS: Portable supine chest demonstrates a normal cardiac silhouette. Lungs and pleural spaces are clear. N o pneumothorax on this supine projection. No osseous abnormalities. IMPRESSION: No acute cardiopulmonary process. POS: [facility]
[2017-07-27] MEDS ORDERED: PROGRAF PO SCH ×2 (11:00→21:00)
[2017-07-27] MEDS ORDERED: MYFORTIC PO SCH ×2 (11:00→21:00)
[2017-07-27] MEDS ORDERED: predniSONE 10 MG TAB PO SCH (11:15)
[2017-07-27] MEDS ORDERED: Levemir Flexpen 100 UNITS/ML PEN SC SCH ×2 (11:15→21:00)
[2017-07-27] MEDS ORDERED: HumaLOG 300 UNITS/3 ML VIAL SC SCH (14:45)
[2017-07-27 18:24] VITALS: BP 140/88; TEMP 97.5
--- NOTE | 2017-07-27 18:42 | HP ---
A 23-HOUR OBSERVATION NOTE DATE OF ADMISSION TO OBSERVATION STATUS: 07/27/2017 REASON FOR OBSERVATION ADMISSION: Status post allergic reaction. HISTORY OF PRESENT ILLNESS: The patient is a 31-year-old white female with a complicated medical his tory including insulin-dependent type 1 diabetes and history of kidney and pancreatic transplant in 2 013, who was in her usual state of health until late the night prior to admission. The patient repor ts she was staying in some tall grass about 15 minutes before presenting to the emergency room, felt a burning sting to her lateral right foot and then within 3-4 minutes she started feeling her throat as if it was closing in. Tongue was swelling, palms are stinging and itching, and she felt short of breath. She felt some tightness to her throat as well. In the emergency room, she was determined to have an acute allergic reaction. She was given Solu-Medrol as well as Benadryl and epinephrine. Th e patient very quickly thereafter improved with her rasping voice resolved, throat closing sensation and tingling in her extremities resolved as well, but she was slightly sleepy after getting the Benad ryl and because of her multiple comorbidities, it was deemed appropriate to admit her to observation for the next 6-12 hours to evaluate for any signs of recurrence of the allergic reaction. PAST MEDICAL HISTORY: 1. Insulin-dependent diabetes mellitus. 2. History of myocardial infarction by her report. 3. History of end-stage renal disease. 4. History of transient ischemic attacks. 5. History of gastroesophageal reflux disease. PAST SURGICAL HISTORY: Include tonsillectomy, transplant of the kidneys and pancreas in 2012, in pas t being on peritoneal dialysis with the catheter removal. MEDICATIONS: Aspirin 325 mg daily, Humalog 6 units t.i.d. with meals plus sliding scale, Myfortic 72 0 mg p.o. b.i.d., Protonix 40 mg daily, prednisone 5 mg daily, and Prograf capsules 2 mg capsules p.o . b.i.d. ALLERGIES: The patient reports allergies to SULFA and MORPHINE, causing hives. SOCIAL HISTORY: The patient reports smoking cigarettes, occasionally tobacco, social drinking of alc ohol and does say that she occasionally uses methamphetamines socially, but no other illicit drug use by her report. She is independent in all activities of daily living. REVIEW OF SYSTEMS: The patient reports no recent fevers, chills, or night sweats. No nausea, vomiti ng or diarrhea prior to onset of symptoms. Appetite has been good. The patient says that she checks her blood sugars intermittently and they are usually in the 200s-300 range. She otherwise reports c ompliance with her medications. No recent GI complaints. No cough, no shortness of breath. No dysu lenard, hematuria, no change in urinary frequency. No significant weight changes. PHYSICAL EXAMINATION: GENERAL: White female, thin, alert and oriented x3, in no obvious distress. VITAL SIGNS: Blood pressure was 128/68, respiratory rate was 16, pulse was 82. The patient is afebr ile. HEENT: Atraumatic, normocephalic. Extraocular movements are intact. Pupils are equal, round, and r eactive to light and accommodation. Oropharynx: Mucous membranes are moist. No exudate, discharge or lesions. NECK: Supple, no masses palpated, no bruits auscultated. CHEST: Clear to auscultation bilaterally without rales or wheezes. HEART: Regular rate and rhythm with a 2/6 systolic ejection murmur, which the patient reports as chr onic. ABDOMEN: Soft, well-healed vertical scar. Abdomen is nontender, nondistended. No masses palpated. EXTREMITIES: Left forearm, there was an abscess site. In the emergency room, it was I&D'd by the ergency room physician and packed with sterile dressing. There is some mild surrounding erythema, bu t no significant discharge at the site. Again, it was I&D'd early this morning. LABORATORY DATA: Significant for white count of 3800. PT of 11.9 with an INR of 0.9. Chemistries w ere within normal limits except for blood sugar 218. Lactic acid initially was 3.14, then several ho urs later was 1.1. Alkaline phosphatase was 154. Urinalysis was significant for glucose, 7-10 rbc's , 21-50 wbc's, and 4+ bacteria. Urine toxicology did show amphetamines and methamphetamines positive . BRIEF SUMMARY OF HOSPITAL COURSE: After getting the BENADRYL, Solu-Medrol and epinephrine injection, the patient was admitted to the floor. Over the next 12+ hours, she had no recurrence of any shortn ess of breath, wheezing, tongue swelling, itching or any other signs of allergic reaction. Her vital signs were stable throughout the entire observation stay. Her blood sugars were in the 300 range an d she was treated with sliding scale per her routine. Since the patient was medically stable, had no signs of recurrence of her allergic reaction. It was deemed appropriate to be discharged to home. The patient was told to follow up within 24-[address] Gerard Ramsey her primary care physic durga to repack her abscess in her left forearm. She had both urine and blood cultures drawn, the resu lts of which she can follow up with Dr. Ramsey. She is starting clindamycin 300 mg t.i.d. and Mac robid 1 tablet p.o. b.i.d. Orders were sent to the [facility] pharmacy, which was her choice. She was told that she had any recurrence of the signs of an allergic reaction which were discussed in detail with the patient, she should return to the emergency room. Otherwise, when she follows up with Dr. Eli wood, she will talk about considering an EpiPen to be used for further allergic reactions.
[2017-07-28] MEDS ORDERED: predniSONE 10 MG TAB PO SCH (09:00)
[2017-07-28] MEDS ORDERED: Aspirin 325 MG TAB PO SCH (09:00)
[2017-07-28] MEDS ORDERED: FLU VACC QS2017-18 36 mo. & older 0.5 ML SYRINGE IM ONE (09:00)
== END 2017-07-27 19:47 | disposition home or self-care (01) ==
LOC: BURERS 23:47 → BURMED 07-27 04:50
PROVIDERS: ADMIT Family Medicine; ATTEND Family Medicine
DX: T63.481A Toxic effect of venom of other arthropod, accidental (unintentional), initial encounter (principal); E11.22 Type 2 diabetes mellitus with diabetic chronic kidney disease; N18.6 End stage renal disease; I25.2 Old myocardial infarction; K21.9 Gastro-esophageal reflux disease without esophagitis; F17.210 Nicotine dependence, cigarettes, uncomplicated; Z88.2 Allergy status to sulfonamides; Z88.5 Allergy status to narcotic agent; Z79.4 Long term (current) use of insulin; Z79.899 Other long term (current) drug therapy; Z98.890 Other specified postprocedural states; Z99.2 Dependence on renal dialysis; Z86.73 Personal history of transient ischemic attack (TIA), and cerebral infarction without residual deficits
CPT/HCPCS: 10060; 36416; 71045; 80053; 80306; 81003; 81015; 83605; 85025; 85610; 85730; 87040; 87070; 87077; 87086; 87186; 87205; 96374; 96375; 36415-59; A4216; G0378; J1815; J2001; J7512

== ENCOUNTER 2017-08-07 20:28 | Emergency (ER) | payer MEDICARE ==
[2017-08-07] MEDS ORDERED: Ondansetron HCl/PF 4 MG/2 ML Vial ONE (21:14)
[2017-08-07 21:28] LABS: #Lymphocytes 1.4 thou/uL (1.20-3.40); #Monocytes 0.6 thou/uL (0.11-0.59); #Neutrophils 12.2 thou/uL (1.40-6.50); %Basophils 0.2 % (0.0-1.0); %Lymphocytes 9.6 % (21.0-51.0); %Neutrophils 86.1 % (42.0-75.0); Hemoglobin 20.2 g/dL (12.0-16.0); Mean Corpuscular Hemoglobin 31.6 pg (27.0-31.0); Mean Corpuscular Volume 95.7 fl (81.0-99.0); Mean Platelet Volume 6.6 fL (7.4-10.4); Platelet Count 360 thou/uL (130-400); Red Blood Cell (RBC) Count 6.38 mill/uL (4.20-5.40); White Blood Cell (WBC) Count 14.1 thou/uL (4.8-10.8)
[2017-08-07 21:44] LABS: ALT (SGPT) 15 U/L (8-55); AST (SGOT) 12 U/L (5-34); Albumin 4.5 g/dL (3.5-5.0); Alkaline Phosphatase 176 U/L (40-150); Anion Gap 28 mmol/L (10-20); BUN (Urea Nitrogen) 29 mg/dL (7.0-18.7); Bilirubin, Total 0.9 mg/dL (0.2-1.2); Calc. Creatinine Clearance 0 mL/min (70-130); Carbon Dioxide 16 mmol/L (22-29); Chloride 101 mmol/L (98-107); Estimated GFR-MDRD 47; Globulin 4.3 g/dL (2.4-3.5); Glucose 99 mg/dL (70-105); Potassium 4.1 mmol/L (3.5-5.1); Protein, Total 8.8 g/dL (6.0-8.3); Sodium 141 mmol/L (136-145)
[2017-08-07 21:51] LABS: Lipase Less than 4 U/L (8-78)
[2017-08-07 22:46] LABS: Bilirubin Moderate (Negative); Blood, Urine Trace (Negative); Clarity Slightly Cloudy (Clear); Glucose, Urine (Dipstick) 500 mg/dL (Negative); Leukocyte Negative (Negative); Nitrite Negative (Negative); Protein, Urine (Dipstick) 100 mg/dL (Neg-Trace); Specific Gravity, Urine 1.025 (1.005-1.030); Urobilinogen 0.2 mg/dL (0.2-1.0); pH, Urine 5.5 (5.0-9.0)
[2017-08-07 22:52] LABS: RBC/HPF 0-3 HPF (0-3)
[2017-08-07 22:53] LABS: Bacteria/HPF 1+ HPF (None Seen); Renal Epithelial 0-3 HPF (0-3)
[2017-08-07 22:54] LABS: Crystals/HPF 1+ AMORPH URATES HPF (Negative); Hyaline Casts/LPF 0-3 HYALINE CAST LPF (0-3 Hyaline)
[2017-08-07 23:29] LABS: Cocaine Metabolite Screen Not Detected (NotDetected); Phencyclidine (PCP) Not Detected (NotDetected); THC/Cannabinoid Screen Not Detected (NotDetected)
[2017-08-07 23:30] LABS: Amphetamine Not Detected (NotDetected); Barbiturates Screen Not Detected (NotDetected); Benzodiazepine Screen Not Detected (NotDetected); Medtox Control Line Valid? VALID (VALID); Methadone Not Detected (NotDetected); Methamphetamine Detected (NotDetected); Opiate Screen Not Detected (NotDetected); Oxycodone Screen Not Detected (NotDetected); Tricyclic Screen Not Detected (NotDetected)
== END 2017-08-07 23:30 | disposition short-term general hospital (02) ==
LOC: BURERS 20:28
DX: E10.10 Type 1 diabetes mellitus with ketoacidosis without coma (principal); E86.0 Dehydration; I25.2 Old myocardial infarction; E10.22 Type 1 diabetes mellitus with diabetic chronic kidney disease; N18.6 End stage renal disease; K21.9 Gastro-esophageal reflux disease without esophagitis; F41.9 Anxiety disorder, unspecified; F32.9 Major depressive disorder, single episode, unspecified; F17.210 Nicotine dependence, cigarettes, uncomplicated; Z79.899 Other long term (current) drug therapy; Z94.0 Kidney transplant status; Z86.73 Personal history of transient ischemic attack (TIA), and cerebral infarction without residual deficits; Z79.4 Long term (current) use of insulin; Z79.82 Long term (current) use of aspirin
CPT/HCPCS: 36415; 36416; 51701; 80053; 80306; 81003; 81015; 83605; 83690; 85025; 87086; 96361; 96374; 96375; A4353; J2405

== ENCOUNTER 2018-03-10 22:56 | Emergency (ER) | payer MEDICARE ==
[2018-03-10 23:17] LABS: Clarity Slightly Cloudy (Clear)
[2018-03-10 23:18] LABS: Bilirubin Large (Negative); Blood, Urine Moderate (Negative); Glucose, Urine (Dipstick) 250 mg/dL (Negative); Leukocyte Negative (Negative); Nitrite Negative (Negative); Protein, Urine (Dipstick) 100 mg/dL (Neg-Trace); Specific Gravity, Urine 1.035 (1.002-1.036); pH, Urine 5.5 (5.0-9.0)
[2018-03-10 23:19] LABS: Bacteria/HPF 1+ HPF (None Seen); Squamous Epithelial 0-3 HPF (0-3)
[2018-03-10 23:20] LABS: Hyaline Casts/LPF 0-3 HYALINE CAST LPF (0-3 Hyaline); Other Casts/LPF 0-3 FINELY GRAN LPF (0-3 Hyaline)
[2018-03-10 23:44] LABS: #Basophils 0.1 thou/uL (0.0-0.2); #Eosinphils 0.3 thou/uL (0.0-0.7); #Lymphocytes 1.2 thou/uL (1.20-3.40); #Monocytes 0.4 thou/uL (0.11-0.59); %Basophils 1.5 % (0.0-1.0); %Eosinophils 4.7 % (0.0-10.0); %Lymphocytes 20.6 % (21.0-51.0); %Monocytes 6.3 % (0.0-10.0); Hemoglobin 13.3 g/dL (12.0-16.0); Mean Corpuscular HGB CONC 34.1 g/dL (32.0-36.0); Mean Corpuscular Hemoglobin 30.9 pg (27.0-31.0); Mean Corpuscular Volume 90.4 fL (78.0-98.0); Mean Platelet Volume 7.2 fL (7.4-10.4); Platelet Count 290 thou/uL (130-400); RBC Distribution Width 14.9 % (11.5-14.5); Red Blood Cell (RBC) Count 4.33 mill/uL (4.20-5.40)
[2018-03-10 23:47] LABS: Amphetamine Not Detected (NotDetected); Barbiturates Screen Not Detected (NotDetected); Benzodiazepine Screen Not Detected (NotDetected); Cocaine Metabolite Screen Not Detected (NotDetected); Medtox Control Line Valid? VALID (VALID); Methadone Not Detected (NotDetected); Methamphetamine Detected (NotDetected); Opiate Screen Not Detected (NotDetected); Oxycodone Screen Not Detected (NotDetected); Phencyclidine (PCP) Not Detected (NotDetected); THC/Cannabinoid Screen Not Detected (NotDetected); Tricyclic Screen Not Detected (NotDetected)
[2018-03-11 00:02] LABS: ALT (SGPT) 8 U/L (8-55); AST (SGOT) 7 U/L (5-34); Albumin 3.5 g/dL (3.5-5.0); Alkaline Phosphatase 143 U/L (40-150); Anion Gap 19 mmol/L (10-20); BUN (Urea Nitrogen) 14 mg/dL (7.0-18.7); Bilirubin, Total 0.8 mg/dL (0.2-1.2); Calc. Creatinine Clearance 0 mL/min (70-130); Calcium 8.6 mg/dL (7.8-10.44); Carbon Dioxide 12 mmol/L (22-29); Chloride 105 mmol/L (98-107); Estimated GFR-MDRD 46; Globulin 2.9 g/dL (2.4-3.5); Glucose 496 mg/dL (70-105); Potassium 3.6 mmol/L (3.5-5.1); Protein, Total 6.4 g/dL (6.0-8.3); Sodium 132 mmol/L (136-145)
[2018-03-11] MEDS ORDERED: Insulin Regular 300 UNITS/3 ML VIAL ONE (00:27)
[2018-03-11] MEDS ORDERED: Piperacillin/Tazobactam 3.375 GM VIAL ONE (00:31)
== END 2018-03-11 00:42 | disposition short-term general hospital (02) ==
LOC: BURERS 22:56
DX: A41.9 Sepsis, unspecified organism (principal); E10.10 Type 1 diabetes mellitus with ketoacidosis without coma; N39.0 Urinary tract infection, site not specified; I25.2 Old myocardial infarction; E10.22 Type 1 diabetes mellitus with diabetic chronic kidney disease; N18.6 End stage renal disease; K21.9 Gastro-esophageal reflux disease without esophagitis; F41.9 Anxiety disorder, unspecified; F17.210 Nicotine dependence, cigarettes, uncomplicated; Z79.4 Long term (current) use of insulin; Z79.899 Other long term (current) drug therapy
CPT/HCPCS: 36416; 80053; 80306; 81003; 81015; 83605; 85025; 87040; 96365; 96368; 96375; J1815; J1956; J2543; J3370

== ENCOUNTER 2018-07-21 19:25 | Emergency (ER) | payer MEDICARE ==
[2018-07-21 19:47] LABS: Clarity Cloudy (Clear); Specific Gravity, Urine 1.018 (1.005-1.030); pH, Urine 5.5 (5.0-9.0)
[2018-07-21 19:48] LABS: Bilirubin Negative (Negative); Blood, Urine Moderate (Negative); Glucose, Urine (Dipstick) 500 mg/dL (Negative); Leukocyte Trace (Negative); Nitrite Positive (Negative); Protein, Urine (Dipstick) 30 mg/dL (Neg-Trace); Urobilinogen 0.2 mg/dL (0.2-1.0)
[2018-07-21 19:49] LABS: Bacteria/HPF 2+ HPF (None Seen); RBC/HPF 0-3 HPF (0-3)
[2018-07-21 19:52] LABS: Pregu Control Background? CLEAR/WHITE (CLR/WHITE); Pregu Control Bar Appear? YES (CONTROL BAR); Specific Gravity 1.018 (1.002-1.036)
[2018-07-21 19:53] LABS: Pregnancy Test - Urine (BHCG) Negative (Negative)
[2018-07-21] MEDS ORDERED: Acetaminophen 500 MG TAB ONE (20:11)
[2018-07-21] MEDS ORDERED: Acetaminophen/Codeine 30-300mg Tablet ONE ×2 (20:25→20:26)
[2018-07-21 20:41] LABS: Base Excess-Venous 0.9 mmol/L (-2.0 to 3.0); CO2 Tension (PvCO2) 37.4 mmHg (40.0-50.0); Calcium, Ionized 1.12 mmol/L (See Comments:); Chloride 97 mmol/L (98-107); Hemoglobin - Calc 13.7 g/dL (12.0-16.0); O2 Tension (PvO2) 28.6 mmHg (35.0-45.0); Potassium 3.9 mmol/L (3.5-5.1); Sodium 132 mmol/L (138-145); T. Carbon Dioxide 26.2 mmol/L (22.0-28.0); pH (Venous) 7.434 (7.320-7.430); vO2 Saturation-calc 56.6 % (60.0-85.0)
[2018-07-21 20:47] LABS: ALT (SGPT) 24 U/L (8-55); AST (SGOT) 57 U/L (5-34); Albumin 2.6 g/dL (3.5-5.0); Alkaline Phosphatase 171 U/L (40-150); Anion Gap 13 mmol/L (10-20); BUN (Urea Nitrogen) 9 mg/dL (7.0-18.7); Bilirubin, Total 0.5 mg/dL (0.2-1.2); Calc. Creatinine Clearance 0 mL/min (70-130); Calcium 8.9 mg/dL (7.8-10.44); Carbon Dioxide 25 mmol/L (22-29); Chloride 98 mmol/L (98-107); Estimated GFR-MDRD 88; Globulin 3.2 g/dL (2.4-3.5); Glucose 195 mg/dL (70-105); Lipase 6 U/L (8-78); Protein, Total 5.8 g/dL (6.0-8.3); Sodium 132 mmol/L (136-145)
[2018-07-21 20:48] LABS: #Basophils 0.1 thou/uL (0.0-0.2); #Eosinphils 0.2 thou/uL (0.0-0.7); #Lymphocytes 0.8 thou/uL (1.20-3.40); #Monocytes 1.5 thou/uL (0.11-0.59); #Neutrophils 7.2 thou/uL (1.40-6.50); %Basophils 1.4 % (0.0-1.0); %Eosinophils 2.2 % (0.0-10.0); %Lymphocytes 8.5 % (21.0-51.0); %Monocytes 14.8 % (0.0-10.0); Hemoglobin 12.8 g/dL (12.0-16.0); Mean Corpuscular HGB CONC 35.2 g/dL (32.0-36.0); Mean Corpuscular Hemoglobin 33.6 pg (27.0-31.0); Mean Corpuscular Volume 95.7 fL (78.0-98.0); Mean Platelet Volume 7.8 fL (7.4-10.4); Platelet Count 139 thou/uL (130-400); RBC Distribution Width 15.1 % (11.5-14.5); Red Blood Cell (RBC) Count 3.82 mill/uL (4.20-5.40); White Blood Cell (WBC) Count 9.9 thou/uL (4.8-10.8)
== END 2018-07-21 21:10 | disposition home or self-care (01) ==
LOC: BURERS 19:25
DX: N12 Tubulo-interstitial nephritis, not specified as acute or chronic (principal); E10.22 Type 1 diabetes mellitus with diabetic chronic kidney disease; K21.9 Gastro-esophageal reflux disease without esophagitis; F41.9 Anxiety disorder, unspecified; F32.9 Major depressive disorder, single episode, unspecified; F17.210 Nicotine dependence, cigarettes, uncomplicated; I25.2 Old myocardial infarction; Z86.73 Personal history of transient ischemic attack (TIA), and cerebral infarction without residual deficits; Z79.4 Long term (current) use of insulin; Z79.899 Other long term (current) drug therapy
CPT/HCPCS: 36416; 80053; 81003; 81015; 81025; 82330; 82803; 83690; 85025; 87086; 99284

== ENCOUNTER 2020-06-05 20:00 | Emergency (ER) | payer MEDICARE ==
[2020-06-05] MEDS ORDERED: Lidocaine 1% PF 5 ML VIAL ONE ×2 (20:32→22:09)
[2020-06-05] MEDS ORDERED: Bacitracin 1 PK ONE (20:32)
--- NOTE | 2020-06-05 20:46 | RAD ---
PORTABLE CHEST: Date: 06-05-2020 FINDINGS: An AP portable film at 2028 is compared with a 04-29-2020 study. The heart is normal in size and the lungs are clear. No infiltrate or effusion was seen. There was no vascular congestion or edema. There appears to be a fair amount of fluid or foodstuff in the stomach . IMPRESSION: No acute thoracic findings. POS: HOME
[2020-06-05 20:52] LABS: #Basophils 0.1 thou/uL (0.0-0.2); #Eosinphils 0.1 thou/uL (0.0-0.7); #Lymphocytes 1.1 thou/uL (1.20-3.40); #Monocytes 0.7 thou/uL (0.11-0.59); #Neutrophils 4.2 thou/uL (1.40-6.50); %Basophils 1.1 % (0.0-1.0); %Eosinophils 1.4 % (0.0-10.0); %Lymphocytes 18.1 % (21.0-51.0); %Monocytes 10.9 % (0.0-10.0); %Neutrophils 68.6 % (42.0-75.0); Mean Corpuscular HGB CONC 32.4 g/dL (32.0-36.0); Mean Platelet Volume 6.1 fL (7.4-10.4); Platelet Count 362 thou/uL (130-400); RBC Distribution Width 13.1 % (11.5-14.5); Red Blood Cell (RBC) Count 4.54 mill/uL (4.20-5.40); White Blood Cell (WBC) Count 6.1 thou/uL (4.8-10.8)
[2020-06-05 20:59] LABS: Bilirubin Negative (Negative); Blood, Urine Trace (Negative); Clarity Cloudy (Clear); Glucose, Urine (Dipstick) 500 mg/dL (Negative); Ketone, Urine Negative (Negative); Leukocyte Negative (Negative); Nitrite Negative (Negative); Protein, Urine (Dipstick) Negative (Neg-Trace); Urobilinogen 0.2 mg/dL (Less than 2)
[2020-06-05 21:00] LABS: Specific Gravity, Urine 1.032 (1.002-1.036)
[2020-06-05 21:02] LABS: Bicarbonate (HCO3v) 26.9 mmol/L (22.0-28.0); Calcium, Ionized 1.08 mmol/L (1.15-1.33); Chloride 89 mmol/L (98-107); Hemoglobin - Calc 17.7 g/dL (12.0-16.0); Potassium 4.1 mmol/L (3.5-5.1); Sodium 128 mmol/L (138-145); T. Carbon Dioxide 28.6 mmol/L (22.0-28.0); vO2 Saturation-calc 60.1 % (60.0-85.0)
[2020-06-05 21:04] LABS: Bacteria/HPF 1+ HPF (None Seen); RBC/HPF 0-3 HPF (0-3); Squamous Epithelial 0-3 HPF (0-3); Yeast-Budding 4+ HPF (None Seen)
[2020-06-05 21:06] LABS: BHCG - Serum Negative (NEGATIVE); Pregs Control Background? CLEAR/WHITE (CLR/WHITE); Pregs Control Bar Appear? YES (CONTROL BAR)
[2020-06-05 21:12] LABS: ALT (SGPT) 17 U/L (8-55); AST (SGOT) 14 U/L (5-34); Alkaline Phosphatase 247 U/L (40-110); Anion Gap 22 mmol/L (10-20); BUN (Urea Nitrogen) 20 mg/dL (7.0-18.7); Bilirubin, Total 0.4 mg/dL (0.2-1.2); CK (CPK) 26 U/L (29-168); Calc. Creatinine Clearance 0 mL/min (70-130); Calcium 9.6 mg/dL (7.8-10.44); Carbon Dioxide 22 mmol/L (22-29); Chloride 88 mmol/L (98-107); Sodium 128 mmol/L (136-145)
[2020-06-05 21:15] LABS: Glucose 728 mg/dL (70-105)
[2020-06-05] MEDS ORDERED: Fentanyl 100 MCG/2 ML VIAL ONE ×2 (21:47→22:56)
[2020-06-05] MEDS ORDERED: Insulin Regular 300 UNITS/3 ML VIAL ONE (22:16)
[2020-06-05] MEDS ORDERED: Boostrix 0.5 ML (Tdap) VIAL ONE (23:02)
[2020-06-05] MEDS ORDERED: Cefepime 2 GM VIAL ONE (23:04)
[2020-06-05] MEDS ORDERED: Sodium Chloride 0.9% 100 ML ONE (23:05)
== END 2020-06-05 23:30 | disposition short-term general hospital (02) ==
LOC: BURERS 20:00
DX: E10.10 Type 1 diabetes mellitus with ketoacidosis without coma (principal); L03.116 Cellulitis of left lower limb; L02.612 Cutaneous abscess of left foot; I25.2 Old myocardial infarction; F17.210 Nicotine dependence, cigarettes, uncomplicated
CPT/HCPCS: 10060; 36416; 71045; 80053; 81003; 81015; 82330; 82550; 82803; 83605; 83880; 84484; 84703; 85025; 87070; 87077; 87186; 87205; 90471; 90715; 93005; 96372; 96374; 96375; J0692; J1815; J3010; J3370; J3490

== ENCOUNTER 2020-12-22 21:01 | Emergency (ER) | payer MEDICARE, OTHER ==
[2020-12-22] MEDS ORDERED: Fentanyl 100 MCG/2 ML VIAL ONE (21:17)
[2020-12-22 21:38] LABS: #Eosinphils 0.1 thou/uL (0.0-0.7); #Lymphocytes 1.8 thou/uL (1.20-3.40); #Monocytes 0.6 thou/uL (0.11-0.59); #Neutrophils 2.5 thou/uL (1.40-6.50); %Basophils 0.8 % (0.0-1.0); %Eosinophils 2.3 % (0.0-10.0); %Lymphocytes 35.3 % (21.0-51.0); %Monocytes 12.1 % (0.0-10.0); %Neutrophils 49.5 % (42.0-75.0); Hemoglobin 12.8 g/dL (12.0-16.0); Mean Corpuscular HGB CONC 33.5 g/dL (32.0-36.0); Mean Corpuscular Hemoglobin 32.3 pg (27.0-31.0); Mean Corpuscular Volume 96.4 fL (78.0-98.0); Mean Platelet Volume 6.8 fL (7.4-10.4); Platelet Count 240 thou/uL (130-400); RBC Distribution Width 12.7 % (11.5-14.5); Red Blood Cell (RBC) Count 3.95 mill/uL (4.20-5.40); White Blood Cell (WBC) Count 5.1 thou/uL (4.8-10.8)
[2020-12-22 21:44] LABS: Prothrombin Time 12.7 sec (12.0-14.7)
[2020-12-22 21:54] LABS: ALT (SGPT) 17 U/L (8-55); AST (SGOT) 14 U/L (5-34); Albumin 3.6 g/dL (3.5-5.0); Alkaline Phosphatase 140 U/L (40-110); Anion Gap 15 mmol/L (10-20); BUN (Urea Nitrogen) 20 mg/dL (7.0-18.7); Bilirubin, Total 0.4 mg/dL (0.2-1.2); Calc. Creatinine Clearance 0 mL/min (70-130); Calcium 9.3 mg/dL (7.8-10.44); Carbon Dioxide 26 mmol/L (22-29); Chloride 102 mmol/L (98-107); Globulin 3.8 g/dL (2.4-3.5); Glucose 239 mg/dL (70-105); Potassium 4.1 mmol/L (3.5-5.1); Protein, Total 7.4 g/dL (6.0-8.3); Sodium 139 mmol/L (136-145)
[2020-12-22] MEDS ORDERED: Acetaminophen/Codeine 30-300mg Tablet ONE (23:50)
== END 2020-12-22 23:55 | disposition home or self-care (01) ==
LOC: BURERS 21:01
DX: S20.212A Contusion of left front wall of thorax, initial encounter (principal); E10.22 Type 1 diabetes mellitus with diabetic chronic kidney disease; N18.6 End stage renal disease; I25.2 Old myocardial infarction; K21.9 Gastro-esophageal reflux disease without esophagitis; Z86.73 Personal history of transient ischemic attack (TIA), and cerebral infarction without residual deficits; F17.210 Nicotine dependence, cigarettes, uncomplicated; Z79.899 Other long term (current) drug therapy; W01.0XXA Fall on same level from slipping, tripping and stumbling without subsequent striking against object, initial encounter
CPT/HCPCS: 36415; 71250; 74176; 80053; 85025; 85610; 96372; J3010

== ENCOUNTER 2021-01-27 06:34 | Emergency (ER) | payer SELFPAY ==
[2021-01-27 07:19] LABS: #Basophils 0.3 thou/uL (0.0-0.2); #Eosinphils 0.2 thou/uL (0.0-0.7); #Lymphocytes 2.9 thou/uL (1.20-3.40); #Monocytes 0.6 thou/uL (0.11-0.59); %Basophils 1.8 % (0.0-1.0); %Eosinophils 1.1 % (0.0-10.0); %Lymphocytes 20.9 % (21.0-51.0); %Monocytes 4.4 % (0.0-10.0); %Neutrophils 71.8 % (42.0-75.0); Hemoglobin 12.9 g/dL (12.0-16.0); Mean Corpuscular HGB CONC 29.5 g/dL (32.0-36.0); Mean Corpuscular Hemoglobin 32.4 pg (27.0-31.0); Mean Platelet Volume 6.4 fL (7.4-10.4); Platelet Count 519 thou/uL (130-400); Red Blood Cell (RBC) Count 3.97 mill/uL (4.20-5.40); White Blood Cell (WBC) Count 13.9 thou/uL (4.8-10.8)
[2021-01-27 07:29] LABS: ALT (SGPT) 53 U/L (8-55); AST (SGOT) 20 U/L (5-34); Albumin 3.6 g/dL (3.5-5.0); Alkaline Phosphatase 196 U/L (40-110); BUN (Urea Nitrogen) 31 mg/dL (7.0-18.7); Bilirubin, Total Less than 0.2 mg/dL (0.2-1.2); Calc. Creatinine Clearance 0 mL/min (70-130); Calcium 8.8 mg/dL (7.8-10.44); Carbon Dioxide Less than 8 mmol/L (22-29); Chloride 95 mmol/L (98-107); Globulin 4.5 g/dL (2.4-3.5); Protein, Total 8.1 g/dL (6.0-8.3)
[2021-01-27 07:32] LABS: Glucose 758 mg/dL (70-105); Sodium 129 mmol/L (136-145)
[2021-01-27 07:49] LABS: MDiff Complete? YES; Macrocytosis MODERATE=16-30 cells (100X) (0-5/hpf)
[2021-01-27 07:50] LABS: Magnesium 2.1 mg/dL (1.6-2.6)
[2021-01-27] MEDS ORDERED: Sodium Bicarb 50 MEQ/50 ML Abboject 8.4% SYRINGE ONE (07:51)
[2021-01-27] MEDS ORDERED: Insulin Regular 300 UNITS/3 ML VIAL ONE (08:05)
[2021-01-27 08:27] LABS: Bilirubin Negative (Negative); Blood, Urine Trace (Negative); Clarity Clear (Clear); Glucose, Urine (Dipstick) 500 mg/dL (Negative); Ketone, Urine > or equal to 80 mg/dL (Negative); Leukocyte Negative (Negative); Nitrite Negative (Negative); Protein, Urine (Dipstick) 30 mg/dL (Neg-Trace); Urobilinogen 0.2 mg/dL (Less than 2)
[2021-01-27 08:28] LABS: Pregnancy Test - Urine (BHCG) Negative (Negative); Pregu Control Background? CLEAR/WHITE (CLR/WHITE); Pregu Control Bar Appear? YES (CONTROL BAR)
[2021-01-27 08:31] LABS: Bacteria/HPF 2+ HPF (None Seen); Mucous/LPF Rare LPF (<2+); RBC/HPF 0-3 HPF (0-3); Squamous Epithelial 0-3 HPF (0-3); WBC/HPF 0-3 HPF (0-3)
[2021-01-29 09:35] LABS: CO2 Tension (PvCO2) 18.1 mmHg (42.0-51.0)
[2021-01-29 09:37] LABS: Base Excess-Venous Less than -30.0 mmol/L (-2.0 to 3.0)
[2021-01-29 09:38] LABS: Chloride 107 mmol/L (98-107); Hemoglobin - Calc 14.6 g/dL (12.0-16.0); Sodium 126 mmol/L (138-145); T. Carbon Dioxide Less than 5.0 mmol/L (22.0-28.0); vO2 Saturation-calc 86.3 % (60.0-85.0)
== END 2021-01-27 08:35 | disposition short-term general hospital (02) ==
LOC: BURERS 06:34
DX: E10.10 Type 1 diabetes mellitus with ketoacidosis without coma (principal); I25.2 Old myocardial infarction; N18.6 End stage renal disease; K21.9 Gastro-esophageal reflux disease without esophagitis; F17.210 Nicotine dependence, cigarettes, uncomplicated
CPT/HCPCS: 36416; 36556; 80053; 81003; 81015; 81025; 82330; 82803; 83735; 85025; 93005; 96374; 96375; J1815

== ENCOUNTER 2021-02-08 10:21 | Emergency (ER) | payer SELFPAY ==
[2021-02-08] MEDS ORDERED: HYDROcodone/Acetaminophen 5/325 mg Tablet ONE (10:45)
[2021-02-08] MEDS ORDERED: Ondansetron ODT 4 MG TAB ONE (10:52)
== END 2021-02-08 11:33 | disposition home or self-care (01) ==
LOC: BURERS 10:21
DX: S76.012A Strain of muscle, fascia and tendon of left hip, initial encounter (principal); K21.9 Gastro-esophageal reflux disease without esophagitis; E10.22 Type 1 diabetes mellitus with diabetic chronic kidney disease; N18.6 End stage renal disease; F17.210 Nicotine dependence, cigarettes, uncomplicated; Z79.4 Long term (current) use of insulin; Z86.73 Personal history of transient ischemic attack (TIA), and cerebral infarction without residual deficits; Z79.899 Other long term (current) drug therapy
CPT/HCPCS: Q0162

== ENCOUNTER 2021-02-19 19:08 | Observation (INO) | payer SELFPAY ==
[2021-02-19 20:38] LABS: #Basophils 0.1 thou/uL (0.0-0.2); #Eosinphils 0.3 thou/uL (0.0-0.7); #Lymphocytes 1.7 thou/uL (1.20-3.40); #Monocytes 0.5 thou/uL (0.11-0.59); #Neutrophils 4.5 thou/uL (1.40-6.50); %Basophils 1.9 % (0.0-1.0); %Lymphocytes 23.3 % (21.0-51.0); %Monocytes 7.5 % (0.0-10.0); %Neutrophils 63.4 % (42.0-75.0); Hemoglobin 12.3 g/dL (12.0-16.0); Mean Corpuscular HGB CONC 32.8 g/dL (32.0-36.0); Mean Corpuscular Hemoglobin 31.7 pg (27.0-31.0); Mean Corpuscular Volume 96.7 fL (78.0-98.0); Mean Platelet Volume 6.2 fL (7.4-10.4); Platelet Count 329 thou/uL (130-400); RBC Distribution Width 14.1 % (11.5-14.5); Red Blood Cell (RBC) Count 3.87 mill/uL (4.20-5.40); White Blood Cell (WBC) Count 7.1 thou/uL (4.8-10.8)
[2021-02-19 20:48] LABS: BHCG - Serum Negative (NEGATIVE); Pregs Control Background? CLEAR/WHITE (CLR/WHITE); Pregs Control Bar Appear? YES (CONTROL BAR)
[2021-02-19 20:49] LABS: Base Excess-Venous 2.7 mmol/L (-2.0 to 3.0); Bicarbonate (HCO3v) 28.2 mmol/L (22.0-28.0); Calcium, Ionized 1.24 mmol/L (1.15-1.33); Chloride 91 mmol/L (98-107); Hemoglobin - Calc 13.2 g/dL (12.0-16.0); Potassium 4.6 mmol/L (3.5-5.1); Sodium 128 mmol/L (138-145); T. Carbon Dioxide 29.6 mmol/L (22.0-28.0); vO2 Saturation-calc 50.3 % (60.0-85.0)
[2021-02-19] MEDS ORDERED: Ondansetron PF 4 MG/2 ML Vial ONE (20:49)
[2021-02-19] MEDS ORDERED: Morphine 4 MG/ML VIAL ONE (20:49)
[2021-02-19] MEDS ORDERED: Sodium Chloride 0.9% 0 ML ONE (20:49)
[2021-02-19] MEDS ORDERED: Clindamycin/D5W 600 mg/50 ml Premix Bag ONE (20:49)
[2021-02-19 20:52] LABS: ALT (SGPT) 23 U/L (8-55); AST (SGOT) 17 U/L (5-34); Albumin 3.6 g/dL (3.5-5.0); Alkaline Phosphatase 183 U/L (40-110); Anion Gap 19 mmol/L (10-20); BUN (Urea Nitrogen) 17 mg/dL (7.0-18.7); Bilirubin, Total 0.5 mg/dL (0.2-1.2); Calc. Creatinine Clearance 0 mL/min (70-130); Calcium 10.1 mg/dL (7.8-10.44); Carbon Dioxide 25 mmol/L (22-29); Chloride 90 mmol/L (98-107); Globulin 4.2 g/dL (2.4-3.5); Glucose 456 mg/dL (70-105); Lipase 121 U/L (8-78); Potassium 4.6 mmol/L (3.5-5.1); Protein, Total 7.8 g/dL (6.0-8.3); Sodium 129 mmol/L (136-145)
[2021-02-19 20:56] LABS: Bilirubin Negative (Negative); Blood, Urine Trace (Negative); Clarity Clear (Clear); Glucose, Urine (Dipstick) 500 mg/dL (Negative); Ketone, Urine 40 mg/dL (Negative); Leukocyte Negative (Negative); Nitrite Negative (Negative); Protein, Urine (Dipstick) Negative (Neg-Trace); Specific Gravity, Urine 1.015 (1.005-1.030); Urobilinogen 0.2 mg/dL (Less than 2)
[2021-02-19 21:12] LABS: Amphetamine Not Detected (NotDetected); Barbiturates Screen Not Detected (NotDetected); Benzodiazepine Screen Not Detected (NotDetected); Cocaine Metabolite Screen Not Detected (NotDetected); Medtox Control Line Valid? VALID (VALID); Methadone Not Detected (NotDetected); Methamphetamine Not Detected (NotDetected); Opiate Screen Not Detected (NotDetected); Oxycodone Screen Not Detected (NotDetected); Phencyclidine (PCP) Not Detected (NotDetected); THC/Cannabinoid Screen Not Detected (NotDetected); Tricyclic Screen Not Detected (NotDetected)
[2021-02-19 21:39] LABS: Bacteria/HPF None Seen HPF (None Seen); RBC/HPF 0-3 HPF (0-3); Squamous Epithelial None Seen HPF (0-3); WBC/HPF None Seen HPF (0-3)
[2021-02-19 21:46] LABS: Thyroid Stimulating Hormone 1.7932 uIU/mL (0.35-4.94)
[2021-02-19] MEDS ORDERED: Insulin Regular 300 UNITS/3 ML VIAL ONE (21:49)
[2021-02-19 22:39] LABS: SARS-CoV-2 NAA Rapid Test Not Detected (NotDetected)
[2021-02-20] MEDS ORDERED: Morphine 4 MG/ML VIAL ONE (01:50)
[2021-02-20 03:11] VITALS: BMI 20.5
[2021-02-20] MEDS ORDERED: Ondansetron ODT 4 MG TAB SL PRN (03:15)
[2021-02-20] MEDS ORDERED: Acetaminophen 325 MG TAB PO PRN (03:15)
[2021-02-20] MEDS ORDERED: Ondansetron PF 4 MG/2 ML Vial IVP PRN (03:15)
[2021-02-20] MEDS: Clindamycin/D5W 600 MG in Premix Bag 1 BAG IVPB SCH ×3 (05:09→22:09)
[2021-02-20] MEDS ORDERED: HumaLOG 300 UNITS/3 ML VIAL SC SCH ×2 (07:58→08:45)
[2021-02-20] MEDS: Aspirin 325 MG TAB PO SCH (08:57)
[2021-02-20] MEDS: Nicotine 14 MG PATCH TD SCH (08:57)
[2021-02-20] MEDS: Gabapentin 300 MG CAP PO SCH ×3 (08:58→22:10)
[2021-02-20] MEDS ORDERED: FLU VACC QS2021-22(6MOS UP)/PF 60 MCG/0.5 ML SYRINGE IM ONE (09:00)
[2021-02-20] MEDS ORDERED: MYCOPHENOLATE 180 MG PO SCH ×2 (09:00)
[2021-02-20] MEDS ORDERED: ESCITALOPRAM OXALATE 10 MG PO SCH (09:00)
[2021-02-20] MEDS ORDERED: TACROLIMUS 1 MG PO SCH (09:00)
[2021-02-20] MEDS ORDERED: Escitalopram Oxalate 20 mg Tablet PO SCH (09:00)
[2021-02-20] MEDS: HYDROcodone/Acetaminophen 10/325 mg Tablet PO PRN ×3 (09:03→22:38)
[2021-02-20] MEDS: Lantus 1000 UNITS/10 ML VIAL SC SCH ×2 (09:05→22:08)
[2021-02-20] MEDS ORDERED: Escitalopram Oxalate 10 mg Tablet PO SCH (10:30)
[2021-02-20] MEDS ORDERED: Tacrolimus 0.5 MG CAP PO SCH (11:45)
[2021-02-20] MEDS ORDERED: MYCOPHENOLATE 360 MG PO SCH (11:45)
[2021-02-20] MEDS: HumaLOG 300 UNITS/3 ML VIAL SC SCH ×3 (12:30→22:08)
[2021-02-20] MEDS ORDERED: traZODone HCl 50 MG TAB PO SCH (21:00)
[2021-02-20] MEDS: Tacrolimus 0.5 MG CAP PO SCH (22:10)
[2021-02-20] MEDS: MYCOPHENOLATE 360 MG PO SCH (22:40)
[2021-02-21] MEDS: HYDROcodone/Acetaminophen 10/325 mg Tablet PO PRN ×3 (04:04→12:28)
[2021-02-21] MEDS: Clindamycin/D5W 600 MG in Premix Bag 1 BAG IVPB SCH ×2 (04:05→12:29)
[2021-02-21 05:57] VITALS: BP 131/78; TEMP 97.9
[2021-02-21] MEDS: Aspirin 325 MG TAB PO SCH (08:26)
[2021-02-21] MEDS: Gabapentin 300 MG CAP PO SCH (08:26)
[2021-02-21] MEDS: Tacrolimus 0.5 MG CAP PO SCH (08:27)
[2021-02-21] MEDS: Nicotine 14 MG PATCH TD SCH (08:27)
[2021-02-21] MEDS: Lantus 1000 UNITS/10 ML VIAL SC SCH (08:28)
[2021-02-21] MEDS: HumaLOG 300 UNITS/3 ML VIAL SC SCH ×2 (08:28→12:29)
[2021-02-21] MEDS: MYCOPHENOLATE 360 MG PO SCH (08:36)
[2021-02-21] MEDS ORDERED: Escitalopram Oxalate 10 mg Tablet PO SCH (09:00)
[2021-02-21] MEDS ORDERED: Polyethylene Glycol 3350 17 GM Packet PO SCH (09:00)
== END 2021-02-21 14:53 | disposition home or self-care (01) ==
LOC: BURERS 19:08 → UNDOADMOB 22:50 → BURMED 22:50
PROVIDERS: ADMIT Family Medicine; ATTEND Family Medicine
DX: K03.2 Erosion of teeth (principal); K02.9 Dental caries, unspecified; K04.7 Periapical abscess without sinus; E10.65 Type 1 diabetes mellitus with hyperglycemia; K59.01 Slow transit constipation; K21.9 Gastro-esophageal reflux disease without esophagitis; F15.20 Other stimulant dependence, uncomplicated; N32.89 Other specified disorders of bladder; I25.2 Old myocardial infarction; F17.210 Nicotine dependence, cigarettes, uncomplicated; Z20.822 Contact with and (suspected) exposure to COVID-19; Z79.82 Long term (current) use of aspirin; Z94.0 Kidney transplant status; Z94.83 Pancreas transplant status; Z91.19 Patient's noncompliance with other medical treatment and regimen; Z79.899 Other long term (current) drug therapy; Z88.0 Allergy status to penicillin; Z88.2 Allergy status to sulfonamides
CPT/HCPCS: 36416; 71045; 74176; 80053; 80306; 81003; 81015; 82330; 82803; 83605; 83690; 84443; 84484; 84703; 85025; 86140; 87804; 90471; 90686; 93005; 96366; G0008; G0378; J1815; J2270; J2405; J3490; J7507; Q0162; U0002

== ENCOUNTER 2021-02-24 11:16 | Emergency (ER) | payer SELFPAY ==
[2021-02-24] MEDS ORDERED: levETIRAcetam in NS 100 ML ONE (11:42)
[2021-02-24 12:04] LABS: ALT (SGPT) 33 U/L (8-55); AST (SGOT) 22 U/L (5-34); Albumin 3.8 g/dL (3.5-5.0); Alkaline Phosphatase 190 U/L (40-110); Anion Gap 20 mmol/L (10-20); BUN (Urea Nitrogen) 26 mg/dL (7.0-18.7); Bilirubin, Total 0.7 mg/dL (0.2-1.2); CK (CPK) 23 U/L (29-168); Calc. Creatinine Clearance 0 mL/min (70-130); Calcium 10.5 mg/dL (7.8-10.44); Carbon Dioxide 30 mmol/L (22-29); Chloride 88 mmol/L (98-107); Globulin 4.5 g/dL (2.4-3.5); Glucose 309 mg/dL (70-105); Potassium 4.5 mmol/L (3.5-5.1); Protein, Total 8.3 g/dL (6.0-8.3); Sodium 133 mmol/L (136-145)
[2021-02-24 12:10] LABS: Hemoglobin 13.2 g/dL (12.0-16.0); Red Blood Cell (RBC) Count 4.19 mill/uL (4.20-5.40); White Blood Cell (WBC) Count 6.9 thou/uL (4.8-10.8)
[2021-02-24 12:11] LABS: Mean Corpuscular HGB CONC 33.2 g/dL (32.0-36.0); Mean Corpuscular Hemoglobin 31.5 pg (27.0-31.0); Mean Platelet Volume 6.2 fL (7.4-10.4); Platelet Count 408 thou/uL (130-400); RBC Distribution Width 13.7 % (11.5-14.5)
[2021-02-24 12:12] LABS: Band 19 % (5-11); Eosinophils 3 % (0-10); Lymphocytes 17 % (21-51); Metamyelocyte 1 % (0-0); Monocytes 11 % (0-10); Neutrophil 41 % (42-75); Reactive Lymphocytes 5 % (0-10)
[2021-02-24 12:16] LABS: MDiff Complete? YES; Manual Diff?? NO
[2021-02-24] MEDS ORDERED: Morphine 4 MG/ML VIAL ONE ×2 (12:17→14:54)
[2021-02-24 14:07] LABS: Bilirubin Negative (Negative); Blood, Urine Negative (Negative); Clarity Clear (Clear); Glucose, Urine (Dipstick) 500 mg/dL (Negative); Ketone, Urine 15 mg/dL (Negative); Leukocyte Negative (Negative); Nitrite Negative (Negative); Protein, Urine (Dipstick) Negative (Neg-Trace); Specific Gravity, Urine 1.015 (1.005-1.030); Urobilinogen 0.2 mg/dL (Less than 2)
[2021-02-24] MEDS ORDERED: Acetaminophen 325 MG TAB ONE (14:11)
[2021-02-24] MEDS ORDERED: Metoclopramide HCl 10 MG/2 ML VIAL ONE (14:11)
== END 2021-02-24 15:32 | disposition home or self-care (01) ==
LOC: BURERS 11:16
DX: R56.9 Unspecified convulsions (principal); S70.02XA Contusion of left hip, initial encounter; I25.2 Old myocardial infarction; K21.9 Gastro-esophageal reflux disease without esophagitis; E10.22 Type 1 diabetes mellitus with diabetic chronic kidney disease; N18.6 End stage renal disease; W19.XXXA Unspecified fall, initial encounter
CPT/HCPCS: 36416; 70450; 71045; 72170; 80053; 81003; 82550; 83605; 84484; 85025; 93005; 96374; 96375; J1953; J2270; J2765

== ENCOUNTER 2021-02-25 11:41 | Emergency (ER) | payer SELFPAY ==
[2021-02-25] MEDS ORDERED: HYDROcodone/Acetaminophen 5/325 mg Tablet ONE (12:10)
== END 2021-02-25 12:30 | disposition home or self-care (01) ==
LOC: BURERS 11:41
DX: S70.02XA Contusion of left hip, initial encounter (principal); I25.2 Old myocardial infarction; K21.9 Gastro-esophageal reflux disease without esophagitis; E10.22 Type 1 diabetes mellitus with diabetic chronic kidney disease; N18.6 End stage renal disease; W19.XXXA Unspecified fall, initial encounter
CPT/HCPCS: 99283

== ENCOUNTER 2021-03-07 08:29 | Emergency (ER) | payer SELFPAY ==
[2021-03-07 09:04] LABS: #Basophils 0.1 thou/uL (0.0-0.2); #Lymphocytes 1.2 thou/uL (1.20-3.40); #Monocytes 0.5 thou/uL (0.11-0.59); #Neutrophils 5.3 thou/uL (1.40-6.50); %Basophils 1.4 % (0.0-1.0); %Eosinophils 0.3 % (0.0-10.0); %Lymphocytes 17.4 % (21.0-51.0); %Monocytes 6.5 % (0.0-10.0); %Neutrophils 74.4 % (42.0-75.0); Hemoglobin 13.2 g/dL (12.0-16.0); Mean Corpuscular HGB CONC 34.9 g/dL (32.0-36.0); Mean Corpuscular Hemoglobin 31.7 pg (27.0-31.0); Mean Corpuscular Volume 90.8 fL (78.0-98.0); Platelet Count 302 thou/uL (130-400); RBC Distribution Width 12.6 % (11.5-14.5); Red Blood Cell (RBC) Count 4.16 mill/uL (4.20-5.40); White Blood Cell (WBC) Count 7.1 thou/uL (4.8-10.8)
[2021-03-07] MEDS ORDERED: Ondansetron PF 4 MG/2 ML Vial ONE ×2 (09:17→15:06)
[2021-03-07] MEDS ORDERED: Fentanyl 100 MCG/2 ML VIAL ONE ×3 (09:17→12:35)
[2021-03-07 09:20] LABS: ALT (SGPT) 83 U/L (8-55); AST (SGOT) 40 U/L (5-34); Albumin 3.2 g/dL (3.5-5.0); Alkaline Phosphatase 199 U/L (40-110); Anion Gap 21 mmol/L (10-20); BUN (Urea Nitrogen) 12 mg/dL (7.0-18.7); Bilirubin, Total 0.9 mg/dL (0.2-1.2); Calc. Creatinine Clearance 0 mL/min (70-130); Calcium 9.3 mg/dL (7.8-10.44); Carbon Dioxide 22 mmol/L (22-29); Chloride 96 mmol/L (98-107); Globulin 4.1 g/dL (2.4-3.5); Glucose 343 mg/dL (70-105); Lipase 5 U/L (8-78); Potassium 3.6 mmol/L (3.5-5.1); Protein, Total 7.3 g/dL (6.0-8.3); Sodium 135 mmol/L (136-145)
[2021-03-07] MEDS ORDERED: Insulin Regular 300 UNITS/3 ML VIAL ONE (09:21)
[2021-03-07 12:35] LABS: Bilirubin Negative (Negative); Blood, Urine Negative (Negative); Clarity Clear (Clear); Glucose, Urine (Dipstick) >=1000 mg/dL (Negative); Ketone, Urine 40 mg/dL (Negative); Leukocyte Negative (Negative); Nitrite Negative (Negative); Protein, Urine (Dipstick) Negative (Neg-Trace); Specific Gravity, Urine 1.015 (1.005-1.030); Urobilinogen 0.2 mg/dL (Less than 2); pH, Urine 8.5 (5.0-9.0)
[2021-03-07 14:03] LABS: SARS-CoV-2 NAA Rapid Test Not Detected (NotDetected)
== END 2021-03-07 15:15 | disposition short-term general hospital (02) ==
LOC: BURERS 08:29
DX: K59.00 Constipation, unspecified (principal); I31.3 Pericardial effusion (noninflammatory); N13.30 Unspecified hydronephrosis; E10.65 Type 1 diabetes mellitus with hyperglycemia; K21.9 Gastro-esophageal reflux disease without esophagitis; E10.22 Type 1 diabetes mellitus with diabetic chronic kidney disease; N18.6 End stage renal disease; I25.2 Old myocardial infarction
CPT/HCPCS: 36416; 51702; 74176; 80053; 81003; 83605; 83690; 84484; 85025; 87086; 93005; 96374; 96375; 96376; 36415-59; J1815; J2405; J3010; U0002

== ENCOUNTER 2021-03-21 14:07 | Emergency (ER) | payer SELFPAY ==
[2021-03-21] MEDS ORDERED: Fentanyl 100 MCG/2 ML VIAL ONE ×2 (14:45→15:50)
[2021-03-21] MEDS ORDERED: Ondansetron PF 4 MG/2 ML Vial ONE ×2 (14:46→15:51)
[2021-03-21 14:48] LABS: Bilirubin Small (Negative); Blood, Urine Large (Negative); Clarity Slightly Cloudy (Clear); Glucose, Urine (Dipstick) >=1000 mg/dL (Negative); Ketone, Urine 80 mg/dL (Negative); Leukocyte Negative (Negative); Nitrite Negative (Negative); Protein, Urine (Dipstick) 100 mg/dL (Neg-Trace); Urobilinogen 0.2 mg/dL (Less than 2); pH, Urine 5.5 (5.0-9.0)
[2021-03-21 14:53] LABS: #Basophils 0.1 thou/uL (0.0-0.2); #Eosinphils 0.1 thou/uL (0.0-0.7); #Lymphocytes 1.2 thou/uL (1.20-3.40); #Monocytes 1.1 thou/uL (0.11-0.59); #Neutrophils 10.5 thou/uL (1.40-6.50); %Basophils 0.6 % (0.0-1.0); %Eosinophils 0.8 % (0.0-10.0); %Lymphocytes 9.4 % (21.0-51.0); %Monocytes 8.4 % (0.0-10.0); %Neutrophils 80.9 % (42.0-75.0); Hemoglobin 11.5 g/dL (12.0-16.0); Mean Corpuscular HGB CONC 33.9 g/dL (32.0-36.0); Mean Corpuscular Hemoglobin 30.9 pg (27.0-31.0); Mean Corpuscular Volume 91.4 fL (78.0-98.0); Mean Platelet Volume 6.8 fL (7.4-10.4); Platelet Count 250 thou/uL (130-400); RBC Distribution Width 12.3 % (11.5-14.5); Red Blood Cell (RBC) Count 3.71 mill/uL (4.20-5.40)
[2021-03-21 14:57] LABS: Bacteria/HPF 3+ HPF (None Seen); RBC/HPF 21-50 HPF (0-3); Squamous Epithelial 0-3 HPF (0-3)
[2021-03-21 14:58] LABS: Amphetamine Not Detected (NotDetected); Barbiturates Screen Not Detected (NotDetected); Benzodiazepine Screen Not Detected (NotDetected); Cocaine Metabolite Screen Not Detected (NotDetected); Medtox Control Line Valid? VALID (VALID); Methadone Not Detected (NotDetected); Methamphetamine Not Detected (NotDetected); Opiate Screen Detected (NotDetected); Oxycodone Screen Not Detected (NotDetected); Phencyclidine (PCP) Not Detected (NotDetected); THC/Cannabinoid Screen Not Detected (NotDetected); Tricyclic Screen Not Detected (NotDetected)
[2021-03-21 15:05] LABS: ALT (SGPT) 27 U/L (8-55); AST (SGOT) 23 U/L (5-34); Albumin 3.3 g/dL (3.5-5.0); Alkaline Phosphatase 180 U/L (40-110); Anion Gap 17 mmol/L (10-20); BUN (Urea Nitrogen) 15 mg/dL (7.0-18.7); Calc. Creatinine Clearance 0 mL/min (70-130); Calcium 10.4 mg/dL (7.8-10.44); Carbon Dioxide 25 mmol/L (22-29); Chloride 92 mmol/L (98-107); Globulin 3.9 g/dL (2.4-3.5); Glucose 375 mg/dL (70-105); Potassium 4.4 mmol/L (3.5-5.1); Protein, Total 7.2 g/dL (6.0-8.3); Sodium 130 mmol/L (136-145)
[2021-03-21] MEDS ORDERED: Ciprofloxacin Lactate/D5W 400 mg/200 ml Premix ONE (15:20)
[2021-03-21 15:28] LABS: Lipase Less than 4 U/L (8-78)
[2021-03-21] MEDS ORDERED: Phenazopyridine HCl 97.5 MG TABLET ONE (15:51)
== END 2021-03-21 17:43 | disposition home or self-care (01) ==
LOC: BURERS 14:07
DX: N39.0 Urinary tract infection, site not specified (principal); R07.89 Other chest pain; K21.9 Gastro-esophageal reflux disease without esophagitis; N18.6 End stage renal disease; E10.22 Type 1 diabetes mellitus with diabetic chronic kidney disease; F17.210 Nicotine dependence, cigarettes, uncomplicated
CPT/HCPCS: 36416; 71045; 80053; 80306; 81003; 81015; 83605; 83690; 84484; 85025; 87077; 87086; 87186; 93005; 94760; 96365; 96375; 96376; J0744; J2405; J3010

== ENCOUNTER 2021-05-08 19:27 | Emergency (ER) | payer MEDICARE ==
[2021-05-08] MEDS ORDERED: Clindamycin 150 MG CAP ONE (20:28)
[2021-05-08] MEDS ORDERED: HYDROcodone/Acetaminophen 10/325 mg Tablet ONE (20:28)
== END 2021-05-08 20:45 | disposition home or self-care (01) ==
LOC: BURERS 19:27
DX: K04.7 Periapical abscess without sinus (principal); E10.9 Type 1 diabetes mellitus without complications; K21.9 Gastro-esophageal reflux disease without esophagitis; I25.2 Old myocardial infarction; N18.6 End stage renal disease; Z86.73 Personal history of transient ischemic attack (TIA), and cerebral infarction without residual deficits; F17.210 Nicotine dependence, cigarettes, uncomplicated; Z79.4 Long term (current) use of insulin; Z79.899 Other long term (current) drug therapy
CPT/HCPCS: 99282

== ENCOUNTER 2021-09-16 15:45 | Emergency (ER) | payer SELFPAY ==
[2021-09-16 16:32] LABS: #Basophils 0.1 thou/uL (0.0-0.2); #Eosinphils 0.2 thou/uL (0.0-0.7); #Lymphocytes 1.3 thou/uL (1.20-3.40); #Monocytes 0.3 thou/uL (0.11-0.59); #Neutrophils 3.2 thou/uL (1.40-6.50); %Basophils 2.5 % (0.0-1.0); %Eosinophils 4.8 % (0.0-10.0); %Lymphocytes 25.3 % (21.0-51.0); %Monocytes 6.5 % (0.0-10.0); Hemoglobin 9.8 g/dL (12.0-16.0); Mean Corpuscular HGB CONC 30.8 g/dL (32.0-36.0); Mean Corpuscular Hemoglobin 28.2 pg (27.0-31.0); Mean Corpuscular Volume 91.3 fL (78.0-98.0); Mean Platelet Volume 7.3 fL (7.4-10.4); Platelet Count 277 thou/uL (130-400); RBC Distribution Width 15.7 % (11.5-14.5); Red Blood Cell (RBC) Count 3.48 mill/uL (4.20-5.40); White Blood Cell (WBC) Count 5.2 thou/uL (4.8-10.8)
[2021-09-16 16:52] LABS: Acetaminophen Less than 10.0 mcg/mL (10.0-30.0); Alcohol Less than 10 mg/dL (Less than 10); Salicylate Less than 8.0 mg/dL (15.0-30.0)
[2021-09-16 16:53] LABS: Bicarbonate (HCO3v) 18.9 mmol/L (22.0-28.0); CO2 Tension (PvCO2) 30.5 mmHg (42.0-51.0); Calcium, Ionized 1.03 mmol/L (1.15-1.33); Chloride 85 mmol/L (98-107); Hemoglobin - Calc 11.5 g/dL (12.0-16.0); Potassium 4.6 mmol/L (3.5-5.1); Sodium 117 mmol/L (138-145); T. Carbon Dioxide 19.8 mmol/L (22.0-28.0); vO2 Saturation-calc 98.8 % (60.0-85.0)
[2021-09-16 16:54] LABS: ALT (SGPT) 14 U/L (8-55); AST (SGOT) 13 U/L (5-34); Albumin 3.6 g/dL (3.5-5.0); Alkaline Phosphatase 134 U/L (40-110); Anion Gap 23 mmol/L (10-20); BUN (Urea Nitrogen) 14 mg/dL (7.0-18.7); Bilirubin, Total 0.3 mg/dL (0.2-1.2); Calc. Creatinine Clearance 0 mL/min (70-130); Calcium 7.9 mg/dL (7.8-10.44); Carbon Dioxide 17 mmol/L (22-29); Chloride 83 mmol/L (98-107); Globulin 3.7 g/dL (2.4-3.5); Potassium 4.4 mmol/L (3.5-5.1); Protein, Total 7.3 g/dL (6.0-8.3)
[2021-09-16 17:02] LABS: Glucose 997 mg/dL (70-105); Sodium 119 mmol/L (136-145)
[2021-09-16 17:58] LABS: Bilirubin Negative (Negative); Blood, Urine Negative (Negative); Clarity Clear (Clear); Glucose, Urine (Dipstick) 500 mg/dL (Negative); Ketone, Urine 40 mg/dL (Negative); Leukocyte Negative (Negative); Nitrite Negative (Negative); Protein, Urine (Dipstick) Negative (Neg-Trace); Urobilinogen 0.2 mg/dL (Less than 2); pH, Urine 6.5 (5.0-9.0)
[2021-09-16 18:10] LABS: Amphetamine Not Detected (NotDetected); Barbiturates Screen Not Detected (NotDetected); Benzodiazepine Screen Not Detected (NotDetected); Cocaine Metabolite Screen Not Detected (NotDetected); Medtox Control Line Valid? VALID (VALID); Methadone Not Detected (NotDetected); Methamphetamine Not Detected (NotDetected); Opiate Screen Not Detected (NotDetected); Oxycodone Screen Not Detected (NotDetected); Phencyclidine (PCP) Not Detected (NotDetected); THC/Cannabinoid Screen Not Detected (NotDetected); Tricyclic Screen Not Detected (NotDetected)
[2021-09-16] MEDS ORDERED: Insulin Regular 300 UNITS/3 ML VIAL ONE (18:39)
[2021-09-16] MEDS ORDERED: INSULIN REGULAR IN 0.9 % NACL 100 UNIT/100 ML BAG ONE (18:41)
[2021-09-16 20:38] LABS: Glucose 631 mg/dL (70-105)
[2021-09-16 20:56] LABS: SARS-CoV-2 NAA Rapid Test Not Detected (NotDetected)
== END 2021-09-16 20:20 | disposition short-term general hospital (02) ==
LOC: BURERS 15:45
DX: E10.65 Type 1 diabetes mellitus with hyperglycemia (principal); I25.2 Old myocardial infarction; K21.9 Gastro-esophageal reflux disease without esophagitis; F17.210 Nicotine dependence, cigarettes, uncomplicated; Z20.822 Contact with and (suspected) exposure to COVID-19; Z79.4 Long term (current) use of insulin; Z79.899 Other long term (current) drug therapy; Z86.73 Personal history of transient ischemic attack (TIA), and cerebral infarction without residual deficits
CPT/HCPCS: 36415; 36556; 71045; 80053; 80306; 80307; 81003; 82330; 82803; 83605; 84443; 84484; 85025; 93005; 94760; 96361; 96374; J1815; U0002